=== PATIENT | female | born 1970 | race Caucasian/White ===

== ENCOUNTER 2019-10-18 04:30 | Observation (INO) | payer MEDICARE ==
[2019-10-18] MEDS ORDERED: AZITHROMYCIN INJ 500 MG VIAL IV ONE (04:50)
[2019-10-18] MEDS ORDERED: LEVOFLOXACIN 750 MG/D5W RTU 750 MG/150 ML RTUPB IV ONE (04:50)
[2019-10-18] MEDS ORDERED: RINGERS LACTATED IV ONE (04:50)
[2019-10-18] MEDS ORDERED: ONDANSETRON HCL INJ/PF 4 MG/2 ML SDV IV ONE (05:02)
[2019-10-18] MEDS ORDERED: METHYLPREDNISOLONE INJ 125 MG/2 ML SDV IV ONE (05:03)
[2019-10-18 05:19] LABS: ABSOLUTE BASOPHILS # (AUTO) 0.1 10^3/uL (0.0-0.2); ABSOLUTE EOSINOPHILS # (AUTO) 0.1 10^3/uL (0.0-0.6); ABSOLUTE LYMPHOCYTES (AUTO) 4.4 10^3/uL (0.5-4.7); ABSOLUTE MONOCYTES (AUTO) 0.7 10^3/uL (0.1-1.4); ABSOLUTE NEUT (AUTO) 10.7 10^3/uL (1.7-8.2); BASOPHILS % (AUTO) 0.6 % (0-2); EOSINOPHILS % (AUTO) 0.7 % (0-6); HEMATOCRIT 32.5 % (36.0-47.0); HEMOGLOBIN 10.6 g/dL (12.0-15.5); LYMPHOCYTES % (AUTO) 27.6 % (13-45); MEAN CORPUSCULAR HEMOGLOBIN 29.2 pg (27.0-33.4); MEAN CORPUSCULAR HGB CONC 32.7 g/dL (32.0-36.0); MEAN CORPUSCULAR VOLUME 89 fl (80-97); MONOCYTES % (AUTO) 4.7 % (3-13); PLATELET COUNT 542 10^3/uL (150-450); RED BLOOD COUNT 3.64 10^6/uL (3.72-5.28); RED CELL DISTRIBUTION WIDTH 16.9 % (11.5-14.0); SEGMENTED NEUTROPHILS % (AUTO) 66.4 % (42-78); TOTAL CELLS COUNTED % (AUTO) 100 %; WHITE BLOOD COUNT 16.1 10^3/uL (4.0-10.5)
[2019-10-18 05:28] LABS: INTERNATIONAL RATION (INR) 0.94; PROTHROMBIN TIME 12.6 SEC (11.4-15.4)
[2019-10-18 05:41] LABS: D-DIMER < 0.27 ug/mL (0.00-0.50)
[2019-10-18 05:50] LABS: ALBUMIN 3.7 g/dL (3.5-5.0); ALKALINE PHOSPHATASE 122 U/L (38-126); ANION GAP 12 (5-19); ASPARTATE AMINO TRANSFERASE 20 U/L (14-36); BILIRUBIN,DIRECT 0.4 mg/dL (0.0-0.4); BILIRUBIN,TOTAL 0.4 mg/dL (0.2-1.3); BLOOD UREA NITROGEN 30 mg/dL (7-20); CALCIUM 9.2 mg/dL (8.4-10.2); CARBON DIOXIDE 22 mmol/L (22-30); CHLORIDE 106 mmol/L (98-107); GLUCOSE 83 mg/dL (75-110); POTASSIUM 4.7 mmol/L (3.6-5.0); TOTAL PROTEIN 6.8 g/dL (6.3-8.2)
[2019-10-18 06:01] LABS: NT PRO BNP 1210 pg/mL (<125)
[2019-10-18 06:03] LABS: ARTERIAL BLOOD BASE EXCESS -4.7 mmol/L; ARTERIAL BLOOD HCO3 20.8 mmol/L (20-24); ARTERIAL BLOOD O2 SATURATION 94.1 % (94-98); ARTERIAL BLOOD PCO2 39.9 mmHg (35-45); ARTERIAL BLOOD PH 7.33 (7.35-7.45); ARTERIAL BLOOD PO2 74.2 mmHg (80-100)
[2019-10-18 06:06] LABS: TROPONIN I < 0.012 ng/mL
[2019-10-18 06:06] LABS: ARTERIAL BLOOD FIO2 ROOM AIR
--- NOTE | 2019-10-18 06:19 | ER Document Report ---
ED General - General Chief Complaint: Chest Pain > 30 Stated Complaint: CHEST PAIN Time Seen by Provider: 10/18/19 04:39 TRAVEL OUTSIDE OF THE [place] IN LAST 30 DAYS: No - HPI Notes: Carol Herrera is a 49-year-old female with a chief complaint of chest pain and difficulties breathing. Patient has smoked in excess of 1 pack/day all of her adult life. She has a history of COPD. She was seen by primary care provider elsewhere 3 days ago and started on prednisone and azithromycin. She is coughing up green sputum. She denies fever. She reports developing pain in her chest 3 days ago and says this is gotten progressively worse. It is described tonight as pressure radiating into the left shoulder. Partial relief with nitroglycerin spray administered by EMS. Patient denies any known prior history of coronary disease. Risk factors include cigarette smoking, hyperlipidemia and hypertension. No family history of CAD. Patient is not diabetic. HEART Score: HISTORY 1 ECG 1 AGE 1 RISK FACTORS 2 TROPONIN 0 TOTAL: 5 If HEART score is = 3 AND both tronponin measurments are normal, the 30 day risk of a major adverse cardiac event (all-cause mortality, myocardia infarction or need for coronary revscularization) is < 1% (Sensitivity 100%, NPV 100%). - Related Data Allergies/Adverse Reactions: Penicillins Allergy (Verified 10/18/19 04:39) Past Medical History - General Information source: Patient, Relative - Social History Smoking Status: Current Every Day Smoker Frequency of alcohol use: None Drug Abuse: None Lives with: Family Family History: Reviewed & Not Pertinent Patient has suicidal ideation: No Patient has homicidal ideation: No - Past Medical History Cardiac Medical History: Reports: None Pulmonary Medical History: Reports: Hx COPD EENT Medical History: Reports: None Neurological Medical History: Reports: Hx Migraine Endocrine Medical History: Reports: None Renal/ Medical History: Reports: None Malignancy Medical History: Reports: None GI Medical History: Reports: Hx Gastritis Musculoskeletal Medical History: Reports Hx Arthritis Psychiatric Medical History: Reports: Hx Depression Review of Systems - Review of Systems Notes: Constitutional: Negative for fever. HENT: Negative for sore throat. Eyes: Negative for visual changes. Cardiovascular: As per HPI. Respiratory: As per HPI. Gastrointestinal: Nausea without vomiting. Genitourinary: Negative for dysuria. Musculoskeletal: Negative for back pain. Skin: Negative for rash. Neurological: Dull headache present. 10 point ROS negative except as marked above and in HPI. Physical Exam - Vital signs Vitals: Pulse Ox 97 10/18/19 04:50 - Notes Notes: GENERAL: Female patient who appears considerably older than stated age.. Patient is tearful and anxious. SKIN: Good turgor no rashes. HEAD: Normocephalic atraumatic. EYES: PERRLA. EOMI. Conjunctivae and sclerae clear. EARS: CANALS AND TMS CLEAR. NOSE: CLEAR. MOUTH: Moist mucosa. Good dentition. No stridor or edema. No drooling. NECK: Supple. No masses or thyromegaly. No adenopathy. Carotids 2+ without bruits. No JVD. BACK: Symmetrical without tenderness. CHEST: Mild tenderness mid anterior chest area. Scattered rhonchi and end expiratory wheezes bilaterally. HEART: Regular rhythm. No murmur gallop or rub. ABDOMEN: Soft nontender without masses, organomegaly or rebound. Bowel sounds normally active. No bruits. GENITALIA: Deferred. EXTREMITIES: 1+ clubbing of nailbeds both upper extremities. No edema. No calf tenderness. Cap refill less than 1.5 seconds. Dorsalis pedis and posterior tibial pulses 3+ and symmetrical. NEUROLOGICAL: GCS 15. Alert and oriented x3. Fluent speech. Cranial nerves II through XII intact. Sensorimotor and cerebellar normal. Normal tone. PSYCHIATRIC: Anxious affect. Course - Re-evaluation Re-evalutation: 10/18/19 06:30 Initial troponin is negative. Patient was marginally hypotensive on arrival here and this rapidly improved with administration of IV normal saline. Lactate level is normal. White count is elevated. Chest x-ray shows no focal infiltrate. EKG showed nonspecific changes only. Patient was given a nebulizer treatment with DuoNeb and IV Solu-Medrol. I also gave her IV Levaquin and repeat blood cultures. Her lactate level was normal. I think it is most likely this lady's discomfort is related to COPD exacerbation with acute bronchitis. She has substantial coronary disease risk factors with a heart score of 5. We also got a d-dimer and this was normal. Recommend admission for this patient to a monitored bed and serial cardiac enzymes. I have paged Dr. Preciado for admission but he has not yet returned my page. - Vital Signs Vital signs: Temp Pulse Resp BP Pulse Ox 97.7 F 69 18 89/72 L 95 10/18/19 05:12 10/18/19 05:12 10/18/19 05:12 10/18/19 05:12 10/18/19 05:12 - Laboratory Result Diagrams: 10/18/19 04:40 10/18/19 04:40 Laboratory results interpreted by me: 10/18/19 10/18/19 10/18/19 04:40 04:40 04:40 WBC 16.1 H RBC 3.64 L Hgb 10.6 L Hct 32.5 L RDW 16.9 H Plt Count 542 H Absolute Neuts (auto) 10.7 H ABG pH ABG pO2 BUN 30 H Creatinine 1.96 H Est GFR ( Amer) 33 L Est GFR (MDRD) Non-Af 27 L Lactic Acid NT-Pro-B Natriuret Pep 1210 H 10/18/19 10/18/19 04:40 05:36 WBC RBC Hgb Hct RDW Plt Count Absolute Neuts (auto) ABG pH 7.33 L ABG pO2 74.2 L BUN Creatinine Est GFR ( Amer) Est GFR (MDRD) Non-Af Lactic Acid 0.5 L NT-Pro-B Natriuret Pep Discharge - Discharge Clinical Impression: Acute exacerbation of COPD with asthma, Acute bronchitis Chest pain Qualifiers: Chest pain type: unspecified Qualified Code(s): R07.9 - Chest pain, unspecified Condition: Fair Disposition: ADMITTED OBSERVATION Admitting Provider: Ozzy (Hospitalist)
--- NOTE | 2019-10-18 06:53 | RADIOLOGY REPORT (SQ) ---
EXAM: XR Chest, 1 View EXAM DATE/TIME: 10/18/2019 6:05 AM CLINICAL HISTORY: The patient is 49 years old and is Female; chest pain TECHNIQUE: Frontal view of the chest. COMPARISON: No relevant prior studies available. FINDINGS: LUNGS: Minimal left basilar density is suggestive of atelectasis. The lungs are otherwise clear. PLEURAL SPACE: Unremarkable. No pneumothorax. HEART: No significant enlargement of the cardiac silhouette. MEDIASTINUM: Unremarkable. BONES/JOINTS: No acute osseous findings. IMPRESSION: Minimal left basilar atelectasis.
[2019-10-18 07:20] LABS: APPEARANCE,URINE CLEAR; BILIRUBIN,URINE NEGATIVE (NEGATIVE); COLOR,URINE YELLOW; GLUCOSE, URINE NEGATIVE (NEGATIVE); KETONES,URINE NEGATIVE (NEGATIVE); PROTEIN,URINE NEGATIVE (NEGATIVE); URINE SPECIFIC GRAVITY 1.024; UROBILINOGEN,URINE NEGATIVE mg/dL (<2.0)
[2019-10-18 07:40] LABS: URINE AMPHETAMINES SCREEN NEGATIVE; URINE BARBITURATES SCREEN NEGATIVE; URINE BENZODIAZEPINES SCREEN NEGATIVE; URINE COCAINE SCREEN NEGATIVE; URINE MARIJUANA (THC) SCREEN NEGATIVE; URINE METHADONE SCREEN NEGATIVE; URINE PHENCYCLIDINE SCREEN NEGATIVE
[2019-10-18 07:52] LABS: A TYPE INFLUENZA AG NEGATIVE (NEGATIVE); B INFLUENZA AG NEGATIVE (NEGATIVE)
[2019-10-18] MEDS ORDERED: PROMETHAZINE HCL INJ 25 MG/1 ML VIAL IV PRN (08:42)
[2019-10-18] MEDS ORDERED: MAGNESIUM HYDROXIDE SUSP 30 ML UDCUP PO PRN (08:42)
[2019-10-18] MEDS ORDERED: TEMAZEPAM 15 MG CAPSULE PO PRN (08:42)
[2019-10-18] MEDS ORDERED: ONDANSETRON HCL INJ/PF 4 MG/2 ML SDV IV PRN (08:42)
[2019-10-18] MEDS ORDERED: MORPHINE SULFATE 10 MG/ML INJ IV PRN (08:55)
[2019-10-18] MEDS ORDERED: NITROGLYCERIN 0.4 MG/TAB 25 TAB/BOTTLE SL PRN (08:55)
[2019-10-18] MEDS: OXYCODONE-ACETAMINOPHEN 5-325 MG TABLET PO PRN ×3 (09:51→22:28)
[2019-10-18] MEDS: DOCUSATE SODIUM 100 MG CAPSULE PO SCH ×2 (09:51→17:06)
[2019-10-18] MEDS: AZITHROMYCIN 250 MG TABLET PO SCH (09:51)
--- NOTE | 2019-10-18 10:12 | EKG REPORT ---
SEVERITY:- ABNORMAL ECG - SINUS RHYTHM FIRST DEGREE AV BLOCK NONSPECIFIC T ABNORMALITIES, LATERAL LEADS : Confirmed by: Soha Flores MD 18-Oct-2019 10:12:23
[2019-10-18] MEDS ORDERED: (PENDING PHARMACY ID) (Clonazepam [Klonopin] 0.5 MG) PO PRN (10:44)
[2019-10-18] MEDS ORDERED: QUETIAPINE FUMARATE 100 MG TABLET PO PRN ×2 (10:44)
[2019-10-18] MEDS ORDERED: SUMATRIPTAN SUCCINATE 25 MG TABLET PO PRN (10:44)
[2019-10-18] MEDS ORDERED: (PENDING PHARMACY ID) (Lamotrigine [Lamictal] 25 MG) PO SCH (11:00)
[2019-10-18] MEDS ORDERED: FUROSEMIDE 20 MG TABLET PO SCH (11:00)
--- NOTE | 2019-10-18 11:06 | PDOC H&P ---
History of Present Illness Admission Date/PCP: 10/18/19 06:43 History of Present Illness: GIN HADDAD is a 49 year old female with past medical history of tension, tobacco abuse, non-oxygen dependent COPD, migraine headaches, depression, bipolar, asthma, presenting to ED complaining of worsening shortness of breath associated with productive cough and pleuritic chest pain for the last 3 days. Was seen by PCP started on prednisone and azithromycin with no significant improvement, denies any fever, chills any recent travel, sick contacts, nausea, vomiting, diarrhea, constipation or any urinary symptoms. Past Medical History Cardiac Medical History: Reports: None Pulmonary Medical History: Reports: Chronic Obstructive Pulmonary Disease (COPD) EENT Medical History: Reports: None Neurological Medical History: Reports: Migraine Endocrine Medical History: Reports: None Renal/ Medical History: Reports: None Malignancy Medical History: Reports: None Musculoskeltal Medical History: Reports: Arthritis Psychiatric Medical History: Reports: Depression Social History Lives with: Family Smoking Status: Current Every Day Smoker Cigarettes Packs Per Day: -0.5 Number of Years Smokin Frequency of Alcohol Use: None Hx Recreational Drug Use: No Drugs: None Hx Prescription Drug Abuse: No Family History Family History: Reviewed & Not Pertinent Parental Family History Reviewed: Yes Children Family History Reviewed: Yes Sibling(s) Family History Reviewed.: Yes Medication/Allergy Home Medications: Albuterol Sulfate [Proair Hfa Inhalation Aerosol 8.5 gm Mdi] 2 puff IH ASDIR PRN 10/18/19 Albuterol Sulfate [Ventolin 0.083% Neb 2.5 mg/3 ml Ampul] 1 vial NEB RTQ4HP PRN 10/18/19 Amlodipine Besylate [Norvasc 5 mg Tablet] 2.5 mg PO DAILY 10/18/19 Atorvastatin Calcium [Lipitor 20 mg Tablet] 20 mg PO DAILY 10/18/19 Budesonide/Formoterol Fumarate [Symbicort Hfa 160-4.5 Mcg Inhaler 6 gm] 2 puff IH Q12 10/18/19 Clonazepam [Klonopin] 0.5 mg PO Q8HP PRN 10/18/19 Fluoxetine HCl [Prozac] 80 mg PO QAM 10/18/19 Fluticasone Propionate [Flonase Nasal [place] 50 Mcg/[place] 16 gm] 2 sprays NASL Q12 10/18/19 Furosemide [Lasix 20 mg Tablet] 20 mg PO DAILY 10/18/19 Gabapentin [Neurontin] 1,200 mg PO Q8 10/18/19 Hydroxyzine HCl [Atarax 50 mg Tablet] 50 mg PO QIDP PRN 10/18/19 Lamotrigine [Lamictal] 25 mg PO DAILY 10/18/19 Lurasidone HCl [Latuda 40 mg Tablet] 40 mg PO QPM 10/18/19 Methylprednisolone [Medrol Dosepack (4 mg/Tab) 21 Tab/Dosepak] 4 mg PO ASDIR PRN 10/18/19 Montelukast Sodium [Singulair 10 mg Tablet] 10 mg PO DAILY 10/18/19 Omeprazole 40 mg PO DAILY 10/18/19 Propranolol HCl [Inderal 10 mg Tablet] 10 mg PO Q8 10/18/19 Quetiapine Fumarate [Seroquel 100 mg Tablet] 50 mg PO DAILYP PRN 10/18/19 Quetiapine Fumarate [Seroquel 100 mg Tablet] 100 mg PO HSP PRN 10/18/19 Sumatriptan Succinate [Imitrex 25 mg Tablet] 25 mg PO DAILYP PRN 10/18/19 Topiramate [Topamax] 50 mg PO Q12 10/18/19 Umeclidinium [place] [Incruse Ellipta] 1 puff IH DAILY 10/18/19 Allergies/Adverse Reactions: Penicillins Allergy (Verified 10/18/19 04:39) Review of Systems Review of Systems: as per hpi Physical Exam Vital Signs: Temp Pulse Resp BP Pulse Ox 97.5 F 74 18 62/40 L 97 10/18/19 08:22 10/18/19 08:31 10/18/19 08:22 10/18/19 08:22 10/18/19 08:22 Intake & Output 10/17/19 10/18/19 10/19/19 06:59 06:59 06:59 Intake Total 150 2340 Balance 150 2340 Weight 77.4 kg 80.5 kg General appearance: PRESENT: obese Head exam: PRESENT: atraumatic, normocephalic Respiratory exam: PRESENT: decreased breath sounds, prolonged expiratory phas, wheezes. ABSENT: rales, rhonchi Cardiovascular exam: PRESENT: RRR, other - TTP chest. ABSENT: diastolic murmur, rubs, systolic murmur GI/Abdominal exam: PRESENT: normal bowel sounds, soft. ABSENT: distended, guarding, mass, organolmegaly, rebound, tenderness Neurological exam: PRESENT: alert, awake, oriented to person, oriented to place, oriented to time, oriented to situation, CN II-XII grossly intact. ABSENT: motor sensory deficit Results Laboratory Results: 10/18/19 04:40 10/18/19 04:40 10/18/19 10/18/19 10/18/19 04:40 04:40 04:40 WBC 16.1 H RBC 3.64 L Hgb 10.6 L Hct 32.5 L MCV 89 MCH 29.2 MCHC 32.7 RDW 16.9 H Plt Count 542 H Seg Neutrophils % 66.4 Carbonic Acid HCO3/H2CO3 Ratio ABG pH ABG pCO2 ABG pO2 ABG HCO3 ABG O2 Saturation ABG Base Excess FiO2 Sodium 139.8 Potassium 4.7 Chloride 106 Carbon Dioxide 22 Anion Gap 12 BUN 30 H Creatinine 1.96 H Est GFR ( Amer) 33 L Glucose 83 Lactic Acid 0.5 L Calcium 9.2 Total Bilirubin 0.4 AST 20 Alkaline Phosphatase 122 Total Protein 6.8 Albumin 3.7 Urine Color Urine Appearance Urine pH Ur Specific [place] Urine Protein Urine Glucose (UA) Urine Ketones Urine Blood Urine RBC (Auto) 10/18/19 10/18/19 10/18/19 05:36 06:55 07:52 WBC RBC Hgb Hct MCV MCH MCHC RDW Plt Count Seg Neutrophils % Carbonic Acid 1.20 HCO3/H2CO3 Ratio 17:1 ABG pH 7.33 L ABG pCO2 39.9 ABG pO2 74.2 L ABG HCO3 20.8 ABG O2 Saturation 94.1 ABG Base Excess -4.7 FiO2 ROOM AIR Sodium Potassium Chloride Carbon Dioxide Anion Gap BUN Creatinine Est GFR ( Amer) Glucose Lactic Acid 1.3 Calcium Total Bilirubin AST Alkaline Phosphatase Total Protein Albumin Urine Color YELLOW Urine Appearance CLEAR Urine pH 5.0 Ur Specific [place] 1.024 Urine Protein NEGATIVE Urine Glucose (UA) NEGATIVE Urine Ketones NEGATIVE Urine Blood NEGATIVE Urine RBC (Auto) 0 10/18/19 04:40 Troponin I < 0.012 NT-Pro-B Natriuret Pep 1210 H Impressions: Chest X-Ray 10/18/19 04:51 IMPRESSION: Minimal left basilar atelectasis. Assessment and Plan - Diagnosis (1) Acute respiratory failure with hypoxemia Is this a current diagnosis for this admission?: Yes Plan: Most likely to acute COPD/asthma exacerbation. Admit to telemetry, IV steroids, empiric antibiotics, duo nebs, VILLAGRAN, LABA, ICS, incentive spirometry. (2) Acute exacerbation of COPD with asthma Is this a current diagnosis for this admission?: Yes Plan: History of COPD/asthma non-oxygen dependent. As per problem #1. (3) KYLE (acute kidney injury) Is this a current diagnosis for this admission?: Yes Plan: Likely prerenal. Denies any history of CKD. Cautious volume resuscitation guided by volume status, monitor electrolytes replace as needed. Avoid nephrotoxic meds. BMP tomorrow. If no improvement will consult nephrology. (4) Hyperlipidemia Is this a current diagnosis for this admission?: Yes Plan: Diet and lifestyle modification recommended. Restart home meds. Outpatient PCP follow-up. (5) HTN (hypertension) Is this a current diagnosis for this admission?: Yes Plan: Normotensive. Euvolemic. Restart home meds. Adjust meds as needed. PRN IV hydralazine and metoprolol. (6) Bipolar depression Is this a current diagnosis for this admission?: Yes Plan: Denies any suicidal or homicidal ideation. Restart home meds. Outpatient psychiatry and PCP follow-up. (7) Tobacco abuse Is this a current diagnosis for this admission?: Yes Plan: Extensively advised on quitting. NicoDerm patch provided. (8) Obesity (BMI 30.0-34.9) Is this a current diagnosis for this admission?: Yes Plan: BMI 32.5. Will obtain TSH. Diet and lifestyle modification recommended. (9) Hx of migraine headaches Is this a current diagnosis for this admission?: Yes Plan: Restart home meds. Denies any focal neurological symptoms. (10) Chest pain Qualifiers: Chest pain type: unspecified Qualified Code(s): R07.9 - Chest pain, unsp ecified Is this a current diagnosis for this admission?: Yes Plan: Denies any history of CAD. Troponins negative. EKG no acute changes. Presenting with mildly elevated proBNP. We will obtained echo. This is unlikely cardiac in origin, most likely musculoskeletal. Patient has diffuse tenderness to palpation over anterior chest. Continue supportive measures. (11) Hypotension Is this a current diagnosis for this admission?: Yes Plan: Very unlikely that patient has SIRS/Sepsis. Lactic acid WNL, SPO2 WNL on RA, heart rate WNL, RR WNL. Mild neutrophilic leukocytosis which could be due to outpatient p.o. steroids for acute COPD exacerbation. Most likely mechanical air. Patient has had 2 episodes of low blood pressure recorded EMR however patient is alert oriented x3 in no apparent distress. Admit to telemetry. Monitor vital status.
[2019-10-18] MEDS ORDERED: HYDROXYZINE HCL 10 MG TABLET PO PRN (11:49)
[2019-10-18] MEDS: FLUOXETINE HCL 20 MG CAPSULE PO SCH (12:44)
[2019-10-18] MEDS: MONTELUKAST SODIUM 10 MG TABLET PO SCH (12:44)
[2019-10-18] MEDS: ATORVASTATIN CALCIUM 20 MG TABLET PO SCH (12:45)
[2019-10-18] MEDS: CLONAZEPAM 1 MG TABLET PO PRN ×2 (12:45→22:29)
[2019-10-18] MEDS: IPRATROPIUM/ALBUTEROL 0.5-2.5 MG/3 ML AMPUL NEB SCH ×2 (14:02→20:36)
[2019-10-18] MEDS: HEPARIN SOD (PORCINE) 5,000 UNIT/ML 1 ML VIAL SUBCUT SCH ×2 (14:38→22:22)
[2019-10-18] MEDS: GABAPENTIN 400 MG CAPSULE PO SCH ×2 (14:42→22:20)
[2019-10-18] MEDS: PROPRANOLOL HCL 10 MG TABLET PO SCH ×2 (14:42→22:21)
[2019-10-18] MEDS: TOPIRAMATE 25 MG TABLET PO SCH ×2 (14:42→22:22)
[2019-10-18] MEDS: METHYLPREDNISOLONE INJ 40 MG/1 ML SDV IV SCH ×2 (14:42→22:22)
[2019-10-18] MEDS: FLUTICASONE/VILANTEROL 200-25 MCG/DOSE IH SCH (14:43)
[2019-10-18] MEDS: ACETAMINOPHEN 325 MG TABLET PO PRN (17:06)
[2019-10-18] MEDS: LURASIDONE HCL 40 MG TABLET PO SCH (17:06)
[2019-10-18] MEDS: FLUTICASONE NASAL SPRAY 50 MCG/SPRY 120 SPRAY/16 GM NASL SCH (22:21)
[2019-10-19] MEDS: OXYCODONE-ACETAMINOPHEN 5-325 MG TABLET PO PRN ×4 (03:03→19:37)
[2019-10-19] MEDS: PROPRANOLOL HCL 10 MG TABLET PO SCH ×3 (05:34→21:18)
[2019-10-19] MEDS: HEPARIN SOD (PORCINE) 5,000 UNIT/ML 1 ML VIAL SUBCUT SCH ×3 (05:34→21:21)
[2019-10-19] MEDS: METHYLPREDNISOLONE INJ 40 MG/1 ML SDV IV SCH ×3 (05:37→21:18)
[2019-10-19] MEDS: GABAPENTIN 400 MG CAPSULE PO SCH ×3 (05:37→21:18)
[2019-10-19] MEDS: CLONAZEPAM 1 MG TABLET PO PRN ×3 (05:38→19:37)
[2019-10-19 06:13] LABS: ALBUMIN 3.4 g/dL (3.5-5.0); ALKALINE PHOSPHATASE 109 U/L (38-126); ANION GAP 6 (5-19); ASPARTATE AMINO TRANSFERASE 33 U/L (14-36); BILIRUBIN,DIRECT 0.1 mg/dL (0.0-0.4); BILIRUBIN,TOTAL 0.1 mg/dL (0.2-1.3); BLOOD UREA NITROGEN 22 mg/dL (7-20); CALCIUM 9.6 mg/dL (8.4-10.2); CARBON DIOXIDE 26 mmol/L (22-30); CHLORIDE 106 mmol/L (98-107); GLUCOSE 143 mg/dL (75-110); PHOSPHORUS 3.7 mg/dL (2.5-4.5); POTASSIUM 4.5 mmol/L (3.6-5.0); TOTAL PROTEIN 6.4 g/dL (6.3-8.2)
[2019-10-19 08:28] LABS: ABSOLUTE LYMPHOCYTES (AUTO) 1.4 10^3/uL (0.5-4.7); ABSOLUTE MONOCYTES (AUTO) 0.3 10^3/uL (0.1-1.4); ABSOLUTE NEUT (AUTO) 15.1 10^3/uL (1.7-8.2); BASOPHILS % (AUTO) 0.1 % (0-2); HEMATOCRIT 31.7 % (36.0-47.0); HEMOGLOBIN 10.6 g/dL (12.0-15.5); LYMPHOCYTES % (AUTO) 8.4 % (13-45); MEAN CORPUSCULAR HEMOGLOBIN 29.5 pg (27.0-33.4); MEAN CORPUSCULAR HGB CONC 33.5 g/dL (32.0-36.0); MEAN CORPUSCULAR VOLUME 88 fl (80-97); MONOCYTES % (AUTO) 1.7 % (3-13); PLATELET COUNT 481 10^3/uL (150-450); RED CELL DISTRIBUTION WIDTH 16.8 % (11.5-14.0); SEGMENTED NEUTROPHILS % (AUTO) 89.8 % (42-78); TOTAL CELLS COUNTED % (AUTO) 100 %; WHITE BLOOD COUNT 16.9 10^3/uL (4.0-10.5)
[2019-10-19 08:40] LABS: ANION GAP 10 (5-19); BLOOD UREA NITROGEN 22 mg/dL (7-20); CALCIUM 9.5 mg/dL (8.4-10.2); CARBON DIOXIDE 22 mmol/L (22-30); CHLORIDE 105 mmol/L (98-107); GLUCOSE 137 mg/dL (75-110); POTASSIUM 4.8 mmol/L (3.6-5.0)
[2019-10-19] MEDS: IPRATROPIUM/ALBUTEROL 0.5-2.5 MG/3 ML AMPUL NEB SCH ×3 (08:56→20:25)
[2019-10-19] MEDS: LAMOTRIGINE 25 MG TAB.CHEW PO SCH (09:24)
[2019-10-19] MEDS: ACETAMINOPHEN 325 MG TABLET PO PRN (09:24)
[2019-10-19] MEDS: DOCUSATE SODIUM 100 MG CAPSULE PO SCH ×2 (09:24→17:13)
[2019-10-19] MEDS: FLUOXETINE HCL 20 MG CAPSULE PO SCH (09:24)
[2019-10-19] MEDS: MONTELUKAST SODIUM 10 MG TABLET PO SCH (09:24)
[2019-10-19] MEDS: ATORVASTATIN CALCIUM 20 MG TABLET PO SCH (09:24)
[2019-10-19] MEDS: AZITHROMYCIN 250 MG TABLET PO SCH (09:24)
[2019-10-19] MEDS: AMLODIPINE BESYLATE 2.5 MG TABLET PO SCH (09:25)
[2019-10-19] MEDS: FLUTICASONE NASAL SPRAY 50 MCG/SPRY 120 SPRAY/16 GM NASL SCH ×2 (09:25→21:20)
[2019-10-19] MEDS: FLUTICASONE/VILANTEROL 200-25 MCG/DOSE IH SCH (09:25)
[2019-10-19] MEDS: TOPIRAMATE 25 MG TABLET PO SCH ×2 (09:26→21:23)
[2019-10-19] MEDS ORDERED: AMLODIPINE BESYLATE 5 MG TABLET PO SCH (10:00)
[2019-10-19] MEDS ORDERED: VANCOMYCIN HCL 0 MG in DEXTROSE 5%-WATER 250 ML IV NR ×2 (10:15→10:45)
--- NOTE | 2019-10-19 10:43 | PDOC PROGRESS REPORT ---
Subjective Progress Note for:: 10/19/19 Subjective:: GIN HADDAD is a 49 year old female with past medical history of tension, tobacco abuse, non-oxygen dependent COPD, migraine headaches, depression, bipolar, asthma, presenting to ED complaining of worsening shortness of breath associated with productive cough and pleuritic chest pain for the last 3 days. Was seen by PCP started on prednisone and azithromycin with no significant improvement, denies any fever, chills any recent travel, sick contacts, nausea, vomiting, diarrhea, constipation or any urinary symptoms. 10/19/2019. No acute events overnight, patient is still complaining of shortness of breath and productive cough, chest pain has improved moderately since yesterday, denies any fever, chills, nausea, vomiting, diarrhea, constipation or any urinary symptoms. P.o. tolerant, having normal bowel and bladder movements. Patient could potentially be discharged home however growing gram-positive cocci in blood. Reason For Visit: ACUTE COPD EXCERBATION, CHEST PAIN Physical Exam Vital Signs: Temp Pulse Resp BP Pulse Ox 98.3 F 64 16 111/63 96 10/19/19 08:17 10/19/19 08:56 10/19/19 08:56 10/19/19 08:17 10/19/19 08:56 Intake & Output 10/18/19 10/19/19 10/20/19 06:59 06:59 06:59 Intake Total 150 3370 Output Total 1 Balance 150 3369 Weight 77.4 kg 84.2 kg General appearance: PRESENT: no acute distress, well-developed, well-nourished Head exam: PRESENT: atraumatic, normocephalic Respiratory exam: PRESENT: decreased breath sounds, prolonged expiratory phas. ABSENT: rales, rhonchi, wheezes Cardiovascular exam: PRESENT: RRR, other - Anterior chest wall tenderness to palpation.. ABSENT: diastolic murmur, rubs, systolic murmur GI/Abdominal exam: PRESENT: normal bowel sounds, soft. ABSENT: distended, guarding, mass, organolmegaly, rebound, tenderness Neurological exam: PRESENT: alert, awake, oriented to person, oriented to place, oriented to time, oriented to situation, CN II-XII grossly intact. ABSENT: motor sensory deficit Results Laboratory Results: 10/19/19 08:02 10/19/19 08:02 10/18/19 10/19/19 10/19/19 11:21 04:54 08:02 WBC 16.9 H RBC 3.60 L Hgb 10.6 L Hct 31.7 L MCV 88 MCH 29.5 MCHC 33.5 RDW 16.8 H Plt Count 481 H Seg Neutrophils % 89.8 H Sodium 138.0 Potassium 4.5 Chloride 106 Carbon Dioxide 26 Anion Gap 6 BUN 22 H Creatinine 1.20 Est GFR ( Amer) 58 L Glucose 143 H Lactic Acid 1.6 Calcium 9.6 Phosphorus 3.7 Total Bilirubin 0.1 L AST 33 Alkaline Phosphatase 109 Total Protein 6.4 Albumin 3.4 L 10/19/19 08:02 WBC RBC Hgb Hct MCV MCH MCHC RDW Plt Count Seg Neutrophils % Sodium 137.4 Potassium 4.8 Chloride 105 Carbon Dioxide 22 Anion Gap 10 BUN 22 H Creatinine 1.16 Est GFR ( Amer) > 60 Glucose 137 H Lactic Acid Calcium 9.5 Phosphorus Total Bilirubin AST Alkaline Phosphatase Total Protein Albumin 10/18/19 04:40 Troponin I < 0.012 NT-Pro-B Natriuret Pep 1210 H Impressions: Chest X-Ray 10/18/19 04:51 IMPRESSION: Minimal left basilar atelectasis. Assessment and Plan - Diagnosis (1) Gram-positive bacteremia Is this a current diagnosis for this admission?: Yes Plan: Cultures from 10/18/2019 1 out of 2 growing gram-positive cocci in clusters pending sensitivity likely contamination. We will start on vancomycin, repeat blood culture. (2) Acute respiratory failure with hypoxemia Is this a current diagnosis for this admission?: Yes Plan: Moderate improvement. SPO2 WNL on RA. Most likely to acute COPD/asthma exacerbation. Continue telemetry, IV steroids, empiric antibiotics, duo nebs, VILLAGRAN, LABA, ICS, incentive spirometry. (3) Acute exacerbation of COPD with asthma Is this a current diagnosis for this admission?: Yes Plan: History of COPD/asthma non-oxygen dependent. As per problem #1. (4) KYLE (acute kidney injury) Is this a current diagnosis for this admission?: Yes Plan: Resolved. Euvolemic. Electrolytes WNL. Likely prerenal. Denies any history of CKD. Monitor electrolytes and volume status, replace electrolytes as needed. Avoid nephrotoxic meds. BMP tomorrow. (5) Hyperlipidemia Is this a current diagnosis for this admission?: Yes Plan: Diet and lifestyle modification recommended. Restart home meds. Outpatient PCP follow-up. (6) HTN (hypertension) Is this a current diagnosis for this admission?: Yes Plan: Normotensive. Euvolemic. Restart home meds. Adjust meds as needed. PRN IV hydralazine and metoprolol. (7) Bipolar depression Is this a current diagnosis for this admission?: Yes Plan: Denies any suicidal or homicidal ideation. Restart home meds. Outpatient psychiatry and PCP follow-up. (8) Tobacco abuse Is this a current diagnosis for this admission?: Yes Plan: Extensively advised on quitting. NicoDerm patch provided. (9) Obesity (BMI 30.0-34.9) Is this a current diagnosis for this admission?: Yes Plan: BMI 32.5. Will obtain TSH. Diet and lifestyle modification recommended. (10) Hx of migraine headaches Is this a current diagnosis for this admission?: Yes Plan: Restart home meds. Denies any focal neurological symptoms. (11) Chest pain Qualifiers: Chest pain type: unspecified Qualified Code(s): R07.9 - Chest pain, unspecified Is this a current diagnosis for this admission?: Yes Plan: Moderate improvement. Denies any history of CAD. Troponins negative. EKG no acute changes. Presented with mildly elevated proBNP. Pending 2D echo results. This is unlikely cardiac in origin, most likely musculoskeletal. Patient has diffuse tenderness to palpation over anterior chest. Continue supportive measures. (12) Hypotension Is this a current diagnosis for this admission?: Yes Plan: Resolved. Euvolemic and normotensive. Very unlikely that patient has SIRS/Sepsis. Lactic acid WNL, SPO2 WNL on RA, heart rate WNL, RR WNL. Mild neutrophilic leukocytosis which could be due to outpatient p.o. steroids for acute COPD exacerbation. Most likely mechanical air. Patient has had 2 episodes of low blood pressure recorded EMR however patient is alert oriented x3 in no apparent distress. Admit to telemetry. Monitor vital status.
[2019-10-19] MEDS: VANCOMYCIN HCL 1,250 MG in DEXTROSE 5%-WATER 250 ML IV SCH (12:21)
[2019-10-19] MEDS: NICOTINE 14 MG/24 HR PATCH.TD24 TD SCH (16:07)
[2019-10-19] MEDS: LURASIDONE HCL 40 MG TABLET PO SCH (17:13)
--- NOTE | 2019-10-19 20:50 | XCELERA REPORT ---
[address] [address] Transthoracic Echocardiogram Report Name: GIN HADDAD Age: 49 yrs Gender: Female : 1970 Patient Status: Inpatient Patient Location: [address] [place], [place] [id number] Study Date: 10/18/2019 03:28 PM History: CHF Height: 62 in Weight: 177 lb BSA: 1.8 m2 Procedure: A complete two-dimensional transthoracic echocardiogram was performed (2D, M-mode, spectral and color flow Doppler). The study was technically difficult with many images being suboptimal in quality. Reason For Study: acute chf Previous Evaluation: No previous studies were available. History: CHF. Ordering Physician: LAKHWINDER WOO Performed By: Erica Landeros Interpretation Summary The study was technically difficult with many images being suboptimal in quality. Left ventricular systolic function is normal. The Ejection Fraction estimate is 55-60% The right ventricle is normal in size and function. There is a trace amount of mitral regurgitation There is no aortic valve stenosis There is a trace amount of tricuspid regurgitation There is no pericardial effusion. MMode/2D Measurements & Calculations RVDd: 1.9 cm LVIDd: 5.5 cm FS: 28.0 % Ao root diam: 2.8 cm IVSd: 0.94 cm LVIDs: 4.0 cm EDV(Teich): 147.3 ml Ao root area: 6.2 cm2 LVPWd: 1.1 cm ESV(Teich): 68.3 ml LA dimension: 3.0 cm EF(Teich): 53.7 % Doppler Measurements & Calculations MV E max kartik: MV P1/2t max kartik: Ao V2 max: LV V1 max P.1 cm/sec 126.7 cm/sec 148.4 cm/sec 5.3 mmHg MV A max kartik: MV P1/2t: 45.0 msec Ao max P.8 mmHgLV V1 max: 88.8 cm/sec MVA(P1/2t): 4.9 cm2 114.6 cm/sec MV E/A: 1.0 MV dec slope: 824.0 cm/sec2 MV dec time: 0.19 sec PA V2 max: TR max kartik: MV P1/2t-pr_phl: 116.3 cm/sec 228.0 cm/sec 45.0 msec PA max PG: TR max P.8 mmHg 5.4 mmHg Left Ventricle The left ventricle is grossly normal size. There is mild concentric left ventricular hypertrophy. Left ventricular systolic function is normal. The Ejection Fraction estimate is 55-60%. Doppler measurements suggest pseudonormalized left ventricular relaxation, which is associated with grade II/IV or mild to moderate diastolic dysfunction. No regional wall motion abnormalities noted. Right Ventricle The right ventricle is normal in size and function. Atria The right atrium is normal. The left atrial size is normal. Mitral Valve The mitral valve is grossly normal. There is a trace amount of mitral regurgitation. Aortic Valve The aortic valve is normal in structure and function. The aortic valve is trileaflet. The aortic valve opens well. There is no aortic valve stenosis. No aortic regurgitation is present. Tricuspid Valve The tricuspid valve is normal in structure and function. There is a trace amount of tricuspid regurgitation. Pulmonic Valve The pulmonic valve is not well visualized. Great Vessels The inferior vena cava appeared dilated and decreased < 50% with respiration (RAP 15-20 mmHg). Effusions There is no pericardial effusion. : LAKHWINDER WOO Anil
[2019-10-20] MEDS: OXYCODONE-ACETAMINOPHEN 5-325 MG TABLET PO PRN ×4 (01:10→22:08)
[2019-10-20 05:21] LABS: ABSOLUTE LYMPHOCYTES (AUTO) 1.7 10^3/uL (0.5-4.7); ABSOLUTE MONOCYTES (AUTO) 0.4 10^3/uL (0.1-1.4); ABSOLUTE NEUT (AUTO) 15.8 10^3/uL (1.7-8.2); HEMATOCRIT 30.9 % (36.0-47.0); HEMOGLOBIN 10.2 g/dL (12.0-15.5); LYMPHOCYTES % (AUTO) 9.5 % (13-45); MEAN CORPUSCULAR HEMOGLOBIN 29.1 pg (27.0-33.4); MEAN CORPUSCULAR HGB CONC 32.8 g/dL (32.0-36.0); MEAN CORPUSCULAR VOLUME 89 fl (80-97); MONOCYTES % (AUTO) 2.3 % (3-13); PLATELET COUNT 450 10^3/uL (150-450); RED BLOOD COUNT 3.49 10^6/uL (3.72-5.28); RED CELL DISTRIBUTION WIDTH 16.9 % (11.5-14.0); SEGMENTED NEUTROPHILS % (AUTO) 88.2 % (42-78); TOTAL CELLS COUNTED % (AUTO) 100 %; WHITE BLOOD COUNT 17.9 10^3/uL (4.0-10.5)
[2019-10-20] MEDS ORDERED: PROPRANOLOL HCL 10 MG TABLET ONE (06:31)
[2019-10-20] MEDS: CLONAZEPAM 1 MG TABLET PO PRN (06:42)
[2019-10-20] MEDS: HEPARIN SOD (PORCINE) 5,000 UNIT/ML 1 ML VIAL SUBCUT SCH ×3 (06:42→22:07)
[2019-10-20] MEDS: GABAPENTIN 400 MG CAPSULE PO SCH ×3 (06:42→22:08)
[2019-10-20] MEDS: METHYLPREDNISOLONE INJ 40 MG/1 ML SDV IV SCH ×3 (06:42→22:05)
[2019-10-20] MEDS: PROPRANOLOL HCL 10 MG TABLET PO SCH ×3 (06:54→22:13)
[2019-10-20] MEDS: IPRATROPIUM/ALBUTEROL 0.5-2.5 MG/3 ML AMPUL NEB SCH ×3 (08:06→20:56)
[2019-10-20] MEDS: TOPIRAMATE 25 MG TABLET PO SCH ×2 (09:16→22:06)
[2019-10-20] MEDS: DOCUSATE SODIUM 100 MG CAPSULE PO SCH ×2 (09:17→17:01)
[2019-10-20] MEDS: ATORVASTATIN CALCIUM 20 MG TABLET PO SCH (09:17)
[2019-10-20] MEDS: AZITHROMYCIN 250 MG TABLET PO SCH (09:18)
[2019-10-20] MEDS: MONTELUKAST SODIUM 10 MG TABLET PO SCH (09:18)
[2019-10-20] MEDS: FLUTICASONE/VILANTEROL 200-25 MCG/DOSE IH SCH (09:18)
[2019-10-20] MEDS: FLUTICASONE NASAL SPRAY 50 MCG/SPRY 120 SPRAY/16 GM NASL SCH ×2 (09:18→22:34)
[2019-10-20] MEDS: FLUOXETINE HCL 20 MG CAPSULE PO SCH (09:20)
[2019-10-20] MEDS: NICOTINE 14 MG/24 HR PATCH.TD24 TD SCH (09:20)
[2019-10-20] MEDS: LAMOTRIGINE 25 MG TAB.CHEW PO SCH (11:29)
[2019-10-20] MEDS: AMLODIPINE BESYLATE 2.5 MG TABLET PO SCH (11:29)
[2019-10-20] MEDS: VANCOMYCIN HCL 1,250 MG in DEXTROSE 5%-WATER 250 ML IV SCH (11:29)
[2019-10-20] MEDS ORDERED: PROCHLORPERAZINE MALEATE 10 MG TABLET PO ONE (15:25)
[2019-10-20] MEDS ORDERED: QUETIAPINE FUMARATE 100 MG TABLET PO PRN (15:26)
[2019-10-20] MEDS ORDERED: QUETIAPINE FUMARATE 25 MG TABLET PO ONE (15:55)
--- NOTE | 2019-10-20 16:42 | PDOC PROGRESS REPORT ---
Subjective Progress Note for:: 10/20/19 Subjective:: GIN HADDAD is a 49 year old female with past medical history of tension, tobacco abuse, non-oxygen dependent COPD, migraine headaches, depression, bipolar, asthma, presenting to ED complaining of worsening shortness of breath associated with productive cough and pleuritic chest pain for the last 3 days. Was seen by PCP started on prednisone and azithromycin with no significant improvement, denies any fever, chills any recent travel, sick contacts, nausea, vomiting, diarrhea, constipation or any urinary symptoms. 10/19/2019. No acute events overnight, patient is still complaining of shortness of breath and productive cough, chest pain has improved moderately since yesterday, denies any fever, chills, nausea, vomiting, diarrhea, constipation or any urinary symptoms. P.o. tolerant, having normal bowel and bladder movements. Patient could potentially be discharged home however growing gram-positive cocci in blood. 10/20/2019. No acute events overnight. Still complaining of mild pleuritic chest pain, shortness of breath, headache and not being able to sleep, denies any fever, chills, nausea, vomiting, diarrhea, constipation or any urinary symptoms. Reason For Visit: ACUTE COPD EXCERBATION, CHEST PAIN Physical Exam Vital Signs: Temp Pulse Resp BP Pulse Ox 97.5 F 84 16 138/64 H 92 10/20/19 13:21 10/20/19 14:00 10/20/19 13:54 10/20/19 13:21 10/20/19 13:54 Intake & Output 10/19/19 10/20/19 10/21/19 06:59 06:59 06:59 Intake Total 3370 1058 250 Output Total 1 Balance 3369 1058 250 Weight 84.2 kg 84.2 kg General appearance: PRESENT: no acute distress, well-developed, well-nourished Head exam: PRESENT: atraumatic, normocephalic Respiratory exam: PRESENT: prolonged expiratory phas, wheezes. ABSENT: rales, rhonchi Cardiovascular exam: PRESENT: RRR. ABSENT: diastolic murmur, rubs, systolic murmur GI/Abdominal exam: PRESENT: normal bowel sounds, soft. ABSENT: distended, guarding, mass, organolmegaly, rebound, tenderness Neurological exam: PRESENT: alert, awake, oriented to person, oriented to place, oriented to time, oriented to situation, CN II-XII grossly intact. ABSENT: motor sensory deficit Results Laboratory Results: 10/20/19 04:58 10/19/19 08:02 10/20/19 04:58 WBC 17.9 H RBC 3.49 L Hgb 10.2 L Hct 30.9 L MCV 89 MCH 29.1 MCHC 32.8 RDW 16.9 H Plt Count 450 Seg Neutrophils % 88.2 H 10/18/19 06:55 Clean Catch Midstream Urine Culture - Final NO GROWTH 2 DAYS 10/18/19 10/20/19 04:40 12:57 Troponin I < 0.012 < 0.012 NT-Pro-B Natriuret Pep 1210 H Impressions: Chest X-Ray 10/18/19 04:51 IMPRESSION: Minimal left basilar atelectasis. Assessment and Plan - Diagnosis (1) Gram-positive bacteremia Is this a current diagnosis for this admission?: Yes Plan: Most likely contamination. Cultures from 10/18/2019 1 out of 2 growing gram-positive cocci in clusters pending sensitivity likely contamination. Repeat blood cultures no growth so far. Continue empiric vancomycin pending sensitivity. (2) Acute respiratory failure with hypoxemia Is this a current diagnosis for this admission?: Yes Plan: Moderate improvement. SPO2 WNL on RA. Most likely to acute COPD/asthma exacerbation. Continue telemetry, IV steroids, empiric antibiotics, duo nebs, VILLAGRAN, LABA, ICS, incentive spirometry. (3) Acute exacerbation of COPD with asthma Is this a current diagnosis for this admission?: Yes Plan: History of COPD/asthma non-oxygen dependent. As per problem #1. (4) KYLE (acute kidney injury) Is this a current diagnosis for this admission?: Yes Plan: Resolved. Euvolemic. Electrolytes WNL. Likely prerenal. Denies any history of CKD. Monitor electrolytes and volume status, replace electrolytes as needed. Avoid nephrotoxic meds. BMP tomorrow. (5) Hyperlipidemia Is this a current diagnosis for this admission?: Yes Plan: Diet and lifestyle modification recommended. Restart home meds. Outpatient PCP follow-up. (6) HTN (hypertension) Is this a current diagnosis for this admission?: Yes Plan: Normotensive. Euvolemic. Restart home meds. Adjust meds as needed. PRN IV hydralazine and metoprolol. (7) Bipolar depression Is this a current diagnosis for this admission?: Yes Plan: Denies any suicidal or homicidal ideation. Restart home meds. Outpatient psychiatry and PCP follow-up. (8) Tobacco abuse Is this a current diagnosis for this admission?: Yes Plan: Extensively advised on quitting. NicoDerm patch provided. (9) Obesity (BMI 30.0-34.9) Is this a current diagnosis for this admission?: Yes Plan: BMI 32.5. Will obtain TSH. Diet and lifestyle modification recommended. (10) Hx of migraine headaches Is this a current diagnosis for this admission?: Yes Plan: Restart home meds. Denies any focal neurological symptoms. (11) Chest pain Qualifiers: Chest pain type: unspecified Qualified Code(s): R07.9 - Chest pain, unspecified Is this a current diagnosis for this admission?: Yes Plan: Moderate improvement. Noncardiac. Troponins negative x3. EKG no acute changes. Denies any history of CAD. Presented with mildly elevated proBNP. 2D echo LVEF WNL. This is unlikely cardiac in origin, most likely musculoskeletal. Patient has diffuse tenderness to palpation over anterior chest. Continue supportive measures. (12) Hypotension Is this a current diagnosis for this admission?: Yes Plan: Resolved. Euvolemic and normotensive. Very unlikely that patient has SIRS/Sepsis. Lactic acid WNL, SPO2 WNL on RA, heart rate WNL, RR WNL. Mild neutrophilic leukocytosis which could be due to outpatient p.o. steroids for acute COPD exacerbation. Most likely mechanical air. Patient has had 2 episodes of low blood pressure recorded EMR however patient is alert oriented x3 in no apparent distress. Admit to telemetry. Monitor vital status.
[2019-10-20] MEDS: LURASIDONE HCL 40 MG TABLET PO SCH (17:01)
[2019-10-20] MEDS ORDERED: QUETIAPINE FUMARATE 100 MG TABLET PO SCH ×2 (22:00)
[2019-10-21] MEDS: OXYCODONE-ACETAMINOPHEN 5-325 MG TABLET PO PRN (02:32)
[2019-10-21 05:14] LABS: HEMATOCRIT 31.3 % (36.0-47.0); HEMOGLOBIN 10.4 g/dL (12.0-15.5); MEAN CORPUSCULAR HEMOGLOBIN 29.4 pg (27.0-33.4); MEAN CORPUSCULAR HGB CONC 33.1 g/dL (32.0-36.0); MEAN CORPUSCULAR VOLUME 89 fl (80-97); PLATELET COUNT 470 10^3/uL (150-450); RED BLOOD COUNT 3.53 10^6/uL (3.72-5.28); WHITE BLOOD COUNT 16.4 10^3/uL (4.0-10.5)
[2019-10-21] MEDS: METHYLPREDNISOLONE INJ 40 MG/1 ML SDV IV SCH (05:38)
[2019-10-21] MEDS: HEPARIN SOD (PORCINE) 5,000 UNIT/ML 1 ML VIAL SUBCUT SCH (05:38)
[2019-10-21] MEDS: GABAPENTIN 400 MG CAPSULE PO SCH (05:39)
[2019-10-21] MEDS: PROPRANOLOL HCL 10 MG TABLET PO SCH (05:42)
[2019-10-21] MEDS: IPRATROPIUM/ALBUTEROL 0.5-2.5 MG/3 ML AMPUL NEB SCH (08:33)
[2019-10-21] MEDS: FLUTICASONE/VILANTEROL 200-25 MCG/DOSE IH SCH (09:25)
[2019-10-21] MEDS: FLUTICASONE NASAL SPRAY 50 MCG/SPRY 120 SPRAY/16 GM NASL SCH (09:25)
[2019-10-21] MEDS: NICOTINE 14 MG/24 HR PATCH.TD24 TD SCH (09:25)
[2019-10-21] MEDS: TOPIRAMATE 25 MG TABLET PO SCH (09:26)
[2019-10-21] MEDS: AMLODIPINE BESYLATE 2.5 MG TABLET PO SCH (09:26)
[2019-10-21] MEDS: FLUOXETINE HCL 20 MG CAPSULE PO SCH (09:26)
[2019-10-21] MEDS: DOCUSATE SODIUM 100 MG CAPSULE PO SCH (09:27)
[2019-10-21] MEDS: ATORVASTATIN CALCIUM 20 MG TABLET PO SCH (09:27)
[2019-10-21] MEDS: LAMOTRIGINE 25 MG TAB.CHEW PO SCH (09:27)
[2019-10-21] MEDS: AZITHROMYCIN 250 MG TABLET PO SCH (09:27)
[2019-10-21] MEDS: MONTELUKAST SODIUM 10 MG TABLET PO SCH (09:29)
[2019-10-21 09:40] VITALS: BP 115/65
--- NOTE | 2019-10-21 11:03 | PDOC DISCHARGE SUMMARY ---
Impression - Admit/DC Date/PCP Admission Date/Primary Care Provider: 10/18/19 06:43 Discharge Date: 10/21/19 - Discharge Diagnosis (1) Gram-positive bacteremia Is this a current diagnosis for this admission?: Yes (2) Acute respiratory failure with hypoxemia Is this a current diagnosis for this admission?: Yes (3) Acute exacerbation of COPD with asthma Is this a current diagnosis for this admission?: Yes (4) KYLE (acute kidney injury) Is this a current diagnosis for this admission?: Yes (5) Hyperlipidemia Is this a current diagnosis for this admission?: Yes (6) HTN (hypertension) Is this a current diagnosis for this admission?: Yes (7) Bipolar depression Is this a current diagnosis for this admission?: Yes (8) Tobacco abuse Is this a current diagnosis for this admission?: Yes (9) Obesity (BMI 30.0-34.9) Is this a current diagnosis for this admission?: Yes (10) Hx of migraine headaches Is this a current diagnosis for this admission?: Yes (11) Chest pain Is this a current diagnosis for this admission?: Yes (12) Hypotension Is this a current diagnosis for this admission?: Yes - Additional Information Discharge Diet: Cardiac Discharge Activity: Activity As Tolerated Referrals: [facility] [Provider Group] ([phone] NO ANSWER AT PROVIDER'S OFFICE A MESSAGE WAS LEFT TO CALL PATIENT WITH A HOSPITAL FOLLOW UP APPT. DATE AND TIME.) Home Medications: Albuterol Sulfate [Proair HFA Inhalation Aerosol 8.5 gm MDI] 2 puff IH ASDIR PRN 10/18/19 Albuterol Sulfate [Ventolin 0.083% Neb 2.5 mg/3 mL Ampul] 1 vial NEB RTQ4HP PRN 10/18/19 Amlodipine Besylate [Norvasc 5 mg Tablet] 2.5 mg PO DAILY 10/18/19 Atorvastatin Calcium [Lipitor 20 mg Tablet] 20 mg PO DAILY 10/18/19 Budesonide/Formoterol Fumarate [Symbicort HFA 160-4.5 mcg Inhaler 6 gm] 2 puff IH Q12 10/18/19 Clonazepam [Klonopin] 0.5 mg PO Q8HP PRN 10/18/19 Fluoxetine HCl [Prozac] 80 mg PO QAM 10/18/19 Fluticasone Propionate [Flonase Nasal [place] 50 Mcg/[place] 16 gm] 2 sprays NASL Q12 10/18/19 Furosemide [Lasix 20 mg Tablet] 20 mg PO DAILY 10/18/19 Gabapentin [Neurontin] 1,200 mg PO Q8 10/18/19 Hydroxyzine HCl [Atarax 50 mg Tablet] 50 mg PO QIDP PRN 10/18/19 Lamotrigine [Lamictal] 25 mg PO DAILY 10/18/19 Lurasidone HCl [Latuda 40 mg Tablet] 40 mg PO QPM 10/18/19 Montelukast Sodium [Singulair 10 mg Tablet] 10 mg PO DAILY 10/18/19 Omeprazole 40 mg PO DAILY 10/18/19 Propranolol HCl [Inderal 10 mg Tablet] 10 mg PO Q8 10/18/19 Quetiapine Fumarate [Seroquel 100 mg Tablet] 50 mg PO DAILYP PRN 10/18/19 Quetiapine Fumarate [Seroquel 100 mg Tablet] 100 mg PO HSP PRN 10/18/19 Sumatriptan Succinate [Imitrex 25 mg Tablet] 25 mg PO DAILYP PRN 10/18/19 Topiramate [Topamax] 50 mg PO Q12 10/18/19 Umeclidinium [place] [Incruse Ellipta] 1 puff IH DAILY 10/18/19 History of Present Illiness History of Present Illness: GIN HADDAD is a 49 year old female with past medical history of tension, tobacco abuse, non-oxygen dependent COPD, migraine headaches, depression, bipolar, asthma, presenting to ED complaining of worsening shortness of breath associated with productive cough and pleuritic chest pain for the last 3 days. Was seen by PCP started on prednisone and azithromycin with no significant imp rovement, denies any fever, chills any recent travel, sick contacts, nausea, vomiting, diarrhea, constipation or any urinary symptoms. Hospital Course Hospital Course: (1) Gram-positive bacteremia Most likely contamination. Blood culture 1 out of 4 positive for staph epidermidis. No signs and symptoms of systemic infection. Repeat blood cultures no growth. Received 2 days of IV vancomycin. (2) Acute respiratory failure with hypoxemia Resolved. Moderate improvement. SPO2 WNL on RA. Benign lung examination. Most likely to acute COPD/asthma exacerbation. Was admitted to continue telemetry and started IV steroids, empiric antibiotics, duo nebs, VILLAGRAN, LABA, ICS, incentive spirometry. Received 4 days of IV steroids. Received 4 days of p.o. azithromycin. Was advised to restart her VILLAGRAN, LABA, ICS and follow-up with PCP and magnetometer operator. (3) Acute exacerbation of COPD with asthma History of COPD/asthma non-oxygen dependent. As per problem #1. (4) KYLE (acute kidney injury) Resolved. Euvolemic. Electrolytes WNL. Likely prerenal. Denies any history of CKD. (5) Hyperlipidemia Diet and lifestyle modification recommended. Restarted on home meds. Outpatient PCP follow-up recommended. (6) HTN (hypertension) Normotensive. Euvolemic. Restarted home meds. PRN IV hydralazine and metoprolol. Outpatient PCP follow-up recommended. (7) Bipolar depression Denies any suicidal or homicidal ideation. Restarted home meds. Outpatient PCP and psychiatry follow-up recommended. (8) Tobacco abuse Extensively advised on quitting. NicoDerm patch provided. (9) Obesity (BMI 30.0-34.9) BMI 32.5. Diet and lifestyle modification recommended. (10) Hx of migraine headaches Restarted home meds. Denies any focal neurological symptoms. Outpatient PCP and neurology follow-up recommended. (11) Chest pain Resolved. Noncardiac. Troponins negative x2. EKG no acute changes. Denies any history of CAD. Presented with mildly elevated proBNP. 2D echo LVEF WNL. Patient had diffuse tenderness to palpation over anterior chest on admission. Was started on antiplatelets and continued her statins. (12) Hypotension Resolved. Euvolemic and normotensive. Very unlikely that patient has SIRS/Sepsis. Lactic acid WNL, SPO2 WNL on RA, heart rate WNL, RR WNL. Mild neutrophilic leukocytosis which could be due to outpatient p.o. steroids for acute COPD exacerbation. Most likely mechanical error. Patient has had 2 episodes of low blood pressure recorded EMR however patient is alert oriented x3 in no apparent distress. Admitted to telemetry. Vitals monitored. Physical Exam Vital Signs: Temp Pulse Resp BP Pulse Ox 97.8 F 78 16 115/65 94 10/21/19 09:35 10/21/19 09:35 10/21/19 09:35 10/21/19 09:35 10/21/19 09:35 Intake & Output 10/20/19 10/21/19 10/22/19 06:59 06:59 06:59 Intake Total 1058 1264 Balance 1058 1264 Weight 84.2 kg 84.2 kg General appearance: PRESENT: morbidly obese Head exam: PRESENT: atraumatic, normocephalic Respiratory exam: PRESENT: clear to auscultation mansi. ABSENT: rales, rhonchi, wheezes Cardiovascular exam: PRESENT: RRR. ABSENT: diastolic murmur, rubs, systolic murmur GI/Abdominal exam: PRESENT: normal bowel sounds, soft. ABSENT: distended, guarding, mass, organolmegaly, rebound, tenderness Neurological exam: PRESENT: alert, awake, oriented to person, oriented to place, oriented to time, oriented to situation, CN II-XII grossly intact. ABSENT: motor sensory deficit Results Laboratory Results: WBC 16.4 10^3/uL (4.0-10.5) H 10/21/19 04:27 RBC 3.53 10^6/uL (3.72-5.28) L 10/21/19 04:27 Hgb 10.4 g/dL (12.0-15.5) L 10/21/19 04:27 Hct 31.3 % (36.0-47.0) L 10/21/19 04:27 MCV 89 fl (80-97) 10/21/19 04:27 MCH 29.4 pg (27.0-33.4) 10/21/19 04:27 MCHC 33.1 g/dL (32.0-36.0) 10/21/19 04:27 RDW 17.0 % (11.5-14.0) H 10/21/19 04:27 Plt Count 470 10^3/uL (150-450) H 10/21/19 04:27 Lymph % (Auto) 9.5 % (13-45) L 10/20/19 04:58 Power % (Auto) 2.3 % (3-13) L 10/20/19 04:58 Eos % (Auto) 0.0 % (0-6) 10/20/19 04:58 Baso % (Auto) 0.0 % (0-2) 10/20/19 04:58 Absolute Neuts (auto) 15.8 10^3/uL (1.7-8.2) H 10/20/19 04:58 Absolute Lymphs (auto) 1.7 10^3/uL (0.5-4.7) 10/20/19 04:58 Absolute Monos (auto) 0.4 10^3/uL (0.1-1.4) 10/20/19 04:58 Absolute Eos (auto) 0.0 10^3/uL (0.0-0.6) 10/20/19 04:58 Absolute Basos (auto) 0.0 10^3/uL (0.0-0.2) 10/20/19 04:58 Seg Neutrophils % 88.2 % (42-78) H 10/20/19 04:58 PT 12.6 SEC (11.4-15.4) 10/18/19 04:40 INR 0.94 10/18/19 04:40 D-Dimer < 0.27 ug/mL (0.00-0.50) 10/18/19 04:40 Carbonic Acid 1.20 mmol/L (1.05-1.35) 10/18/19 05:36 HCO3/H2CO3 Ratio 17:1 10/18/19 05:36 ABG pH 7.33 (7.35-7.45) L 10/18/19 05:36 ABG pCO2 39.9 mmHg (35-45) 10/18/19 05:36 ABG pO2 74.2 mmHg (80-100) L 10/18/19 05:36 ABG HCO3 20.8 mmol/L (20-24) 10/18/19 05:36 ABG Total CO2 22.0 mmol/L (21-25) 10/18/19 05:36 ABG O2 Saturation 94.1 % (94-98) 10/18/19 05:36 ABG Base Excess -4.7 mmol/L 10/18/19 05:36 FiO2 ROOM AIR 10/18/19 05:36 Sodium 137.4 mmol/L (137-145) 10/19/19 08:02 Potassium 4.8 mmol/L (3.6-5.0) 10/19/19 08:02 Chloride 105 mmol/L (98-107) 10/19/19 08:02 Carbon Dioxide 22 mmol/L (22-30) 10/19/19 08:02 Anion Gap 10 (5-19) 10/19/19 08:02 BUN 22 mg/dL (7-20) H 10/19/19 08:02 Creatinine 1.16 mg/dL (0.52-1.25) 10/19/19 08:02 Est GFR ( Amer) > 60 (>60) 10/19/19 08:02 Est GFR (MDRD) Non-Af 50 (>60) L 10/19/19 08:02 Glucose 137 mg/dL (75-110) H 10/19/19 08:02 POC Glucose 104 mg/dL (70-110) 10/18/19 05:20 Lactic Acid 1.6 mmol/L (0.7-2.1) 10/18/19 11:21 Calcium 9.5 mg/dL (8.4-10.2) 10/19/19 08:02 Phosphorus 3.7 mg/dL (2.5-4.5) 10/19/19 04:54 Total Bilirubin 0.1 mg/dL (0.2-1.3) L 10/19/19 04:54 Direct Bilirubin 0.1 mg/dL (0.0-0.4) 10/19/19 04:54 Neonat Total Bilirubin Not Reportable 10/19/19 04:54 Neonat Direct Bilirubin Not Reportable 10/19/19 04:54 Neonat Indirect Bili Not Reportable 10/19/19 04:54 AST 33 U/L (14-36) 10/19/19 04:54 ALT 15 U/L (<35) 10/19/19 04:54 Alkaline Phosphatase 109 U/L (38-126) 10/19/19 04:54 Troponin I < 0.012 ng/mL 10/20/19 12:57 NT-Pro-B Natriuret Pep 1210 pg/mL (<125) H 10/18/19 04:40 Total Protein 6.4 g/dL (6.3-8.2) 10/19/19 04:54 Albumin 3.4 g/dL (3.5-5.0) L 10/19/19 04:54 Urine Color YELLOW 10/18/19 06:55 Urine Appearance CLEAR 10/18/19 06:55 Urine pH 5.0 (5.0-9.0) 10/18/19 06:55 Ur Specific [place] 1.024 10/18/19 06:55 Urine Protein NEGATIVE mg/dL (NEGATIVE) 10/18/19 06:55 Urine Glucose (UA) NEGATIVE mg/dL (NEGATIVE) 10/18/19 06:55 Urine Ketones NEGATIVE mg/dL (NEGATIVE) 10/18/19 06:55 Urine Blood NEGATIVE (NEGATIVE) 10/18/19 06:55 Urine Nitrite (Reflex) NEGATIVE (NEGATIVE) 10/18/19 06:55 Urine Bilirubin NEGATIVE (NEGATIVE) 10/18/19 06:55 Urine Urobilinogen NEGATIVE mg/dL (<2.0) 10/18/19 06:55 Leukocyte Esterase Rfl TRACE (NEGATIVE) H 10/18/19 06:55 Urine RBC (Auto) 0 /HPF 10/18/19 06:55 U Hyaline Cast (Auto) 9 /LPF 10/18/19 06:55 Urine Bacteria (Auto) TRACE /HPF 10/18/19 06:55 Urine WBC (Reflex) 3 /HPF 10/18/19 06:55 Squamous Epi Cells Auto 3 /HPF 10/18/19 06:55 Urine Mucus (Auto) RARE /LPF 10/18/19 06:55 Urine Ascorbic Acid NEGATIVE (NEGATIVE) 10/18/19 06:55 Urine Opiates Screen NEGATIVE 10/18/19 06:55 Urine Methadone Screen NEGATIVE 10/18/19 06:55 Ur Barbiturates Screen NEGATIVE 10/18/19 06:55 Ur Phencyclidine Scrn NEGATIVE 10/18/19 06:55 Ur Amphetamines Screen NEGATIVE 10/18/19 06:55 U Benzodiazepines Scrn NEGATIVE 10/18/19 06:55 Urine Cocaine Screen NEGATIVE 10/18/19 06:55 U Marijuana (THC) Screen NEGATIVE 10/18/19 06:55 Influenza A (Rapid) NEGATIVE (NEGATIVE) 10/18/19 07:24 Influenza B (Rapid) NEGATIVE (NEGATIVE) 10/18/19 07:24 10/18/19 10/20/19 04:40 12:57 Troponin I < 0.012 < 0.012 NT-Pro-B Natriuret Pep 1210 H Impressions: Chest X-Ray 10/18/19 04:51 IMPRESSION: Minimal left basilar atelectasis. Stroke Is this a Stroke Patient?: No Acute Heart Failure - Is this a Heart Failure Patient?: No
== END 2019-10-21 09:55 | disposition home or self-care (01) ==
LOC: ER 04:30 → EH 06:43 → 3W 08:11 → INTOOBSV 08:42 → OBSVTOIN 08:42 → 5 10-20 00:39
PROVIDERS: ADMIT Internal Medicine; ATTEND Internal Medicine
DX: R78.81 Bacteremia (principal); J44.1 Chronic obstructive pulmonary disease with (acute) exacerbation; J45.901 Unspecified asthma with (acute) exacerbation; J96.01 Acute respiratory failure with hypoxia; I95.9 Hypotension, unspecified; F17.210 Nicotine dependence, cigarettes, uncomplicated; R94.31 Abnormal electrocardiogram [ECG] [EKG]; I44.0 Atrioventricular block, first degree; E78.5 Hyperlipidemia, unspecified; N17.9 Acute kidney failure, unspecified; I10 Essential (primary) hypertension; F31.9 Bipolar disorder, unspecified; G43.909 Migraine, unspecified, not intractable, without status migrainosus; R07.89 Other chest pain; E66.01 Morbid (severe) obesity due to excess calories; D72.828 Other elevated white blood cell count; Z79.899 Other long term (current) drug therapy; Z68.32 Body mass index [BMI] 32.0-32.9, adult
CPT/HCPCS: 93005; 99285; 96361; 96375; 96365; 96368; 36415 ×4; 87040 ×2; 87086; 82962; 82803; 83605; 84100; 85025 ×3; 85027; 85610; 87077; 80053 ×2; 81001; 84484 ×2; 87186; 80307; 85379; 87804; 83880; 93306; 71045; 94799; 93010; 94640 ×5; G0378 ×4; A9270 ×65; J1644 ×3; J2920 ×4; J2930; J2405; J7060 ×2; J7120; J3370 ×2; J0456; J1956; J3490; J7620; S0183

== ENCOUNTER 2019-12-04 07:49 | Day surgery (SDC) | payer MEDICARE, MEDICAID ==
[2019-12-04] MEDS ORDERED: CLINDAMYCIN 600 MG/D5W RTU 600 MG/50 ML RTUPB IV ONE (08:03)
[2019-12-04 08:18] LABS: HEMATOCRIT 34.8 % (36.0-47.0); HEMOGLOBIN 11.6 g/dL (12.0-15.5); MEAN CORPUSCULAR HEMOGLOBIN 31.9 pg (27.0-33.4); MEAN CORPUSCULAR HGB CONC 33.3 g/dL (32.0-36.0); MEAN CORPUSCULAR VOLUME 96 fl (80-97); PLATELET COUNT 382 10^3/uL (150-450); RED BLOOD COUNT 3.64 10^6/uL (3.72-5.28); RED CELL DISTRIBUTION WIDTH 19.6 % (11.5-14.0); WHITE BLOOD COUNT 9.7 10^3/uL (4.0-10.5)
[2019-12-04 08:37] LABS: ANION GAP 11 (5-19); BLOOD UREA NITROGEN 32 mg/dL (7-20); CALCIUM 9.2 mg/dL (8.4-10.2); CARBON DIOXIDE 19 mmol/L (22-30); CHLORIDE 111 mmol/L (98-107); GLUCOSE 76 mg/dL (75-110); POTASSIUM 4.1 mmol/L (3.6-5.0)
--- NOTE | 2019-12-04 09:30 | RADIOLOGY REPORT (SQ) ---
EXAM DESCRIPTION: CHEST SINGLE VIEW COMPLETED DATE/TIME: 12/04/2019 9:08 am REASON FOR STUDY: PREOP COMPARISON: AP chest 10/18/2019 EXAM PARAMETERS: NUMBER OF VIEWS: One view. TECHNIQUE: Single frontal radiographic view of the chest acquired. RADIATION DOSE: NA LIMITATIONS: None. FINDINGS: LUNGS AND PLEURA: Minimal chronic scarring or atelectasis left lateral lung base. Lungs are otherwise well inflated and clear. No pleural effusion. No pneumothorax. MEDIASTINUM AND HILAR STRUCTURES: No masses. Contour normal. HEART AND VASCULAR STRUCTURES: Heart normal in size. Normal vasculature. BONES: Old healed bilateral rib fractures HARDWARE: None in the chest. OTHER: No other significant finding. IMPRESSION: No acute findings TECHNICAL DOCUMENTATION: JOB ID: [id number] 2010 [employer]- All Rights Reserved Reading location - IP/workstation name: [email or web address]
[2019-12-04] MEDS ORDERED: ONDANSETRON HCL INJ/PF 4 MG/2 ML SDV ONE ×2 (09:37→11:15)
[2019-12-04] MEDS ORDERED: MIDAZOLAM 2 MG/2 ML INJ ONE (09:37)
[2019-12-04] MEDS ORDERED: PROPOFOL INJ 200 MG/20 ML VIAL IV ONE (09:37)
[2019-12-04] MEDS ORDERED: FENTANYL CITRATE INJ/PF 100 MCG/2 ML AMPUL ONE (09:37)
[2019-12-04] MEDS ORDERED: ONDANSETRON HCL INJ/PF 4 MG/2 ML SDV IV PRN (10:28)
[2019-12-04] MEDS ORDERED: OXYCODONE-ACETAMINOPHEN 5-325 MG TABLET PO PRN ×2 (10:28)
[2019-12-04] MEDS ORDERED: PROMETHAZINE HCL INJ 25 MG/1 ML VIAL IV PRN ×2 (10:28)
[2019-12-04] MEDS ORDERED: FENTANYL CITRATE INJ/PF 100 MCG/2 ML AMPUL IV PRN ×3 (10:28)
[2019-12-04] MEDS ORDERED: DIPHENHYDRAMINE HCL 50 MG/ML VIAL IV PRN (10:28)
[2019-12-04] MEDS ORDERED: MEPERIDINE HCL/PF INJ 25 MG/1 ML DISP.SYRIN IV PRN (10:28)
[2019-12-04] MEDS ORDERED: MORPHINE SULFATE 10 MG/ML INJ IV PRN (10:28)
[2019-12-04] MEDS ORDERED: PHENYLEPHRINE HCL INJ/PF 10 MG/1 ML SDV ONE (10:42)
--- NOTE | 2019-12-04 11:07 | Operative Report ---
Operative Report DATE OF SURGERY: 12/04/19 PREOPERATIVE DIAGNOSIS: Pathologic fracture right medial tibial plateau OPERATION: Biopsy of right medial tibial plateau lesion. Intralesional resection right medial tibial plateau using. Open reduction internal fixation right medial tibial plateau fracture SURGEON: JOHNNY SILVERMAN ANESTHESIA: Spinal TISSUE REMOVED OR ALTERED: Frozen section to pathology. Permanent section to p athology ESTIMATED BLOOD LOSS: Minimal PROCEDURE: With the patient supine on the operating table right lower extremities prepped and draped in sterile fashion. The limb is elevated for exsanguination tourniquet inflated 280 torr. A hockey-stick type incision is made over the anterior medial aspect of the tibial plateau and sharp dissection was used carried incision through the retinaculum down to the periosteum. The periosteum is elevated. A hole was fashioned over the anteromedial aspect of the proximal tibial plateau and this enters the underlying cavitary defect which was filled with a white glistening fibrous tissue. This is sent to pathology for frozen section diagnosis. Diagnosis is notable for chronic inflammation final diagn osis deferred. Based on the radiographic appearance which suggest a benign lesion and the limited information from a frozen section, I proceeded with an intralesional resection of the lesion using a curette. The articular defect is then elevated using a bone tamp so that it seems to be congruous with both the medial and lateral structure. A Sally medial titanium plate is placed over the medial aspect of the tibia and secured with 3 screws proximally and 3 screws distally. The residual bone defect is then filled with a combination of crushed cancellus bone and V toss bone substitute. The tourniquet is deflated. The wound is irrigated bulb lavage. Hemostasis obtained with electrocautery. The wound is then closed in layers interrupted Vicryl followed by manny. A sterile compressive dressing is applied and the patient is returned to the PACU in satisfactory condition.
[2019-12-04] MEDS ORDERED: PROMETHAZINE HCL INJ 25 MG/1 ML VIAL ONE (11:29)
[2019-12-04] MEDS ORDERED: MORPHINE SULFATE 10 MG/ML INJ ONE (11:29)
--- NOTE | 2019-12-04 12:32 | RADIOLOGY REPORT (SQ) ---
EXAM DESCRIPTION: KNEE RIGHT 2 VIEWS; NO CHG FLUORO COMPLETED DATE/TIME: 12/04/2019 12:20 pm REASON FOR STUDY: ORIF RIGHT KNEE/TIBIAL PLATEAU ASST WITH FLUORO IN OR S82.101A UNSP FRACTURE OF UPPER END OF RIGHT TIBIA, INIT FOR COMPARISON: None. FLUOROSCOPY TIME: 1.1 minutes. 3 images submitted to PACS. TECHNIQUE: Fluoroscopic images of the right knee were obtained intraoperatively during an ORIF of a medial plateau fracture with placement of a medial plate and several screws. LIMITATIONS: None. FINDINGS: Integrated into the Technique. IMPRESSION: IMAGE(S) OBTAINED DURING PROCEDURE. COMMENT: Quality ID [id number]: Final reports for procedures using fluoroscopy that document radiation exp osure indices, or exposure time and number of fluorographic images (if radiation exposure indices are not available) Please consult full operative report of the attending physician for description of the procedure. TECHNICAL DOCUMENTATION: JOB ID: [id number] 2010 [employer]- All Rights Reserved Reading location - IP/workstation name: [email or web address]
--- NOTE | 2019-12-04 12:32 | RADIOLOGY REPORT (SQ) ---
EXAM DESCRIPTION: KNEE RIGHT 2 VIEWS; NO CHG FLUORO COMPLETED DATE/TIME: 12/04/2019 12:20 pm REASON FOR STUDY: ORIF RIGHT KNEE/TIBIAL PLATEAU ASST WITH FLUORO IN OR S82.101A UNSP FRACTURE OF UPPER END OF RIGHT TIBIA, INIT FOR COMPARISON: None. FLUOROSCOPY TIME: 1.1 minutes. 3 images submitted to PACS. TECHNIQUE: Fluoroscopic images of the right knee were obtained intraoperatively during an ORIF of a medial plateau fracture with placement of a medial plate and several screws. LIMITATIONS: None. FINDINGS: Integrated into the Technique. IMPRESSION: IMAGE(S) OBTAINED DURING PROCEDURE. COMMENT: Quality ID [id number]: Final reports for procedures using fluoroscopy that document radiation exp osure indices, or exposure time and number of fluorographic images (if radiation exposure indices are not available) Please consult full operative report of the attending physician for description of the procedure. TECHNICAL DOCUMENTATION: JOB ID: [id number] 2010 [employer]- All Rights Reserved Reading location - IP/workstation name: [email or web address]
[2019-12-04] MEDS ORDERED: ONDANSETRON 4 MG TAB.RAPDIS SL PRN (13:13)
[2019-12-04] MEDS ORDERED: RINGERS SOLUTION,LACTATED 1,000 ML IV PRN (13:13)
--- NOTE | 2019-12-04 13:29 | EKG REPORT ---
SEVERITY:- ABNORMAL ECG - SINUS RHYTHM BORDERLINE R WAVE PROGRESSION, ANTERIOR LEADS BORDERLINE T ABNORMALITIES, ANTERIOR LEADS PROLONGED QT INTERVAL : Confirmed by: Miguelito Valenzuela MD 04-Dec-2019 13:28:40
[2019-12-04] MEDS: CLINDAMYCIN 600 MG/D5W RTU 600 MG/50 ML RTUPB IV SCH ×2 (13:45→21:47)
[2019-12-04] MEDS: MORPHINE SULFATE 10 MG/ML INJ IV PRN ×4 (13:55→21:49)
[2019-12-04] MEDS: OXYCODONE HCL IR 5 MG TABLET PO PRN (16:42)
[2019-12-04] MEDS ORDERED: HYDROCODONE/ACETAMINOPHEN 5-325 MG TABLET PO PRN (19:23)
[2019-12-04] MEDS ORDERED: ASPIRIN PO PRN (19:23)
[2019-12-04] MEDS ORDERED: ALBUTEROL SULFATE 0.083% NEB 2.5 MG/3 ML AMPUL NEB PRN (19:23)
[2019-12-04] MEDS ORDERED: SUMATRIPTAN SUCCINATE 25 MG TABLET PO PRN (19:23)
[2019-12-04] MEDS ORDERED: (PENDING PHARMACY ID) (Clonazepam [Klonopin] 0.5 MG) PO PRN (19:23)
[2019-12-04] MEDS ORDERED: ALBUTEROL SULFATE HFA (90 MCG/PUFF) 8 GM MDI (1 MDI/ER DISP) IH PRN (19:23)
[2019-12-04] MEDS ORDERED: BUTALBITAL PO PRN (19:23)
[2019-12-04] MEDS ORDERED: [UNRECOGNIZED DRUG - OTHER] PO PRN (19:23)
[2019-12-04] MEDS ORDERED: CAFFEINE PO PRN (19:23)
[2019-12-04] MEDS ORDERED: QUETIAPINE FUMARATE 100 MG TABLET PO PRN ×2 (19:23)
[2019-12-04] MEDS ORDERED: HYDROXYZINE HCL 10 MG TABLET PO PRN (19:29)
[2019-12-04] MEDS ORDERED: LURASIDONE HCL 40 MG TABLET PO SCH (20:30)
[2019-12-04] MEDS: TOPIRAMATE 25 MG TABLET PO SCH (21:47)
[2019-12-04] MEDS: PROPRANOLOL HCL 10 MG TABLET PO SCH (21:48)
[2019-12-04] MEDS: GABAPENTIN 400 MG CAPSULE PO SCH (21:48)
[2019-12-04] MEDS: CLONAZEPAM 1 MG TABLET PO PRN (21:49)
[2019-12-04] MEDS ORDERED: (PENDING PHARMACY ID) (Gabapentin [Gabapentin] 800 MG) PO SCH (22:00)
[2019-12-05] MEDS: OXYCODONE HCL IR 5 MG TABLET PO PRN ×3 (00:41→15:32)
[2019-12-05] MEDS: GABAPENTIN 400 MG CAPSULE PO SCH ×2 (05:44→15:31)
[2019-12-05] MEDS: CLONAZEPAM 1 MG TABLET PO PRN (05:45)
--- NOTE | 2019-12-05 06:14 | PDOC DISCHARGE SUMMARY ---
Impression - Admit/DC Date/PCP Admission Date/Primary Care Provider: 12/04/19 07:49 SYED ALMAGUER PA-C Discharge Date: 12/05/19 - Discharge Diagnosis (1) Tibial plateau fracture, right Is this a current diagnosis for this admission?: Yes - Additional Information Resuscitation Status: Full Code Discharge Diet: Regular Discharge Activity: Balance Activity w/Rest, No tub bath Referrals: JOHNNY SILVERMAN MD [ACTIVE STAFF] - 12/17/19 10:45 am Home Medications: Albuterol Sulfate [Proair HFA Inhalation Aerosol 8.5 gm MDI] 2 puff IH ASDIR PRN 10/18/19 Albuterol Sulfate [Ventolin 0.083% Neb 2.5 mg/3 mL Ampul] 1 vial NEB RTQ4HP PRN 10/18/19 Atorvastatin Calcium [Lipitor 20 mg Tablet] 20 mg PO DAILY 10/18/19 Clonazepam [Klonopin] 0.5 mg PO Q8HP PRN 10/18/19 Fluticasone Propionate [Flonase Nasal [place] 50 Mcg/[place] 16 gm] 1 sprays NAREB DAILY 10/18/19 Furosemide [Lasix 20 mg Tablet] 20 mg PO DAILY 10/18/19 Hydroxyzine HCl [Atarax 50 mg Tablet] 50 mg PO QIDP PRN 10/18/19 Lurasidone HCl [Latuda 40 mg Tablet] 40 mg PO QPM 10/18/19 Montelukast Sodium [Singulair 10 mg Tablet] 10 mg PO DAILY 10/18/19 Omeprazole 40 mg PO DAILY 10/18/19 Propranolol HCl [Inderal 10 mg Tablet] 10 mg PO Q12 10/18/19 Quetiapine Fumarate [Seroquel 100 mg Tablet] 50 mg PO DAILYP PRN 10/18/19 Quetiapine Fumarate [Seroquel 100 mg Tablet] 100 mg PO HSP PRN 10/18/19 Sumatriptan Succinate [Imitrex 25 mg Tablet] 25 mg PO DAILYP PRN 10/18/19 Topiramate [Topamax] 50 mg PO Q12 10/18/19 Umeclidinium [place] [Incruse Ellipta] 1 puff IH DAILY 10/18/19 Amlodipine Besylate [Norvasc 5 mg Tablet] 5 mg PO DAILY 12/04/19 Aspirin [Ecotrin 81 mg EC Tablet] 81 mg PO DAILY 12/04/19 Atenolol [Tenormin] 12.5 mg PO DAILY 12/04/19 Budesonide/Formoterol Fumarate [Symbicort Hfa 80-4.5 Mcg Inhaler 6.9 gm] 2 puff IH Q12 12/04/19 Butalbital/Aspirin/Caffeine [Xzznkw-Hizbzhx-Pksiu 50-325-40] 1 each PO Q4HP PRN MDD 6 TABS 12/04/19 Docusate Sodium [Colace 100 mg Capsule] 100 mg PO DAILY 12/04/19 Fluoxetine HCl [Prozac] 80 mg PO DAILY 12/04/19 Gabapentin 800 mg PO Q8 12/04/19 Hydrocodone/Acetaminophen [Shirley 5-325 mg Tablet] 1 tab PO Q6HP PRN 12/04/19 Lamotrigine 150 mg PO DAILY 12/04/19 History of Present Illiness History of Present Illness: GIN HADDAD is a 49 year old female Patient is a 49-year-old white female who presented with complaints of right knee pain and was found to have a cystic lesion in the medial plateau with a depressed dye punch fracture superimposed on this. Hospital Course Hospital Course: The patient was taken to the operating room and underwent an open reduction inte rnal fixation of the tibial plateau fracture with associated biopsy and intralesional resection of the cystic lesion. The patient tolerated the procedure without complication. She was returned to the floor in satisfactory condition. She is unable to participate with physical therapy on the day of surgery because of uncontrollable pain. She has pain overnight and complains that the nursing staff refused to give her more pain medicine. She was maintained on IV morphine for 12 hours and then switched to oral oxycodone. Last dose of oxycodone prior to my rounds this morning was approximately 5 hours prior. Physical Exam Vital Signs: Temp Pulse Resp BP Pulse Ox 37.2 C 101 H 16 150/62 H 91 L 12/05/19 00:35 12/05/19 00:35 12/05/19 00:35 12/05/19 00:35 12/05/19 00:35 Intake & Output 12/03/19 12/04/19 12/05/19 06:59 06:59 06:59 Intake Total 2490 Output Total 505 Balance 1985 Weight 78.3 kg General appearance: PRESENT: mild distress Head exam: PRESENT: normocephalic Respiratory exam: PRESENT: unlabored Cardiovascular exam: PRESENT: RRR Vascular exam: PRESENT: normal capillary refill GI/Abdominal exam: PRESENT: soft Rectal exam: PRESENT: deferred Musculoskeletal exam: PRESENT: other - Right lower extremity compressive dressing is clean dry and intact. Brisk capillary refill to the toes. Motor function to great toe flexion extension is intact. Sensory examination is intact to light touch. Skin exam: PRESENT: dry, intact, warm. ABSENT: cyanosis, rash Results Laboratory Results: WBC 9.7 10^3/uL (4.0-10.5) 12/04/19 08:06 RBC 3.64 10^6/uL (3.72-5.28) L 12/04/19 08:06 Hgb 11.6 g/dL (12.0-15.5) L 12/04/19 08:06 Hct 34.8 % (36.0-47.0) L 12/04/19 08:06 MCV 96 fl (80-97) 12/04/19 08:06 MCH 31.9 pg (27.0-33.4) 12/04/19 08:06 MCHC 33.3 g/dL (32.0-36.0) 12/04/19 08:06 RDW 19.6 % (11.5-14.0) H 12/04/19 08:06 Plt Count 382 10^3/uL (150-450) 12/04/19 08:06 Sodium 141.3 mmol/L (137-145) 12/04/19 08:06 Potassium 4.1 mmol/L (3.6-5.0) 12/04/19 08:06 Chloride 111 mmol/L (98-107) H 12/04/19 08:06 Carbon Dioxide 19 mmol/L (22-30) L 12/04/19 08:06 Anion Gap 11 (5-19) 12/04/19 08:06 BUN 32 mg/dL (7-20) H 12/04/19 08:06 Creatinine 1.23 mg/dL (0.52-1.25) 12/04/19 08:06 Est GFR ( Amer) 56 (>60) L 12/04/19 08:06 Est GFR (MDRD) Non-Af 46 (>60) L 12/04/19 08:06 Glucose 76 mg/dL (75-110) 12/04/19 08:06 Calcium 9.2 mg/dL (8.4-10.2) 12/04/19 08:06 Impressions: Chest X-Ray 12/04/19 00:00 IMPRESSION: No acute findings Fluoroscopy 12/04/19 00:00 IMPRESSION: IMAGE(S) OBTAINED DURING PROCEDURE. Knee X-Ray 12/04/19 00:00 IMPRESSION: IMAGE(S) OBTAINED DURING PROCEDURE. Plan Plan of Treatment: Patient be discharged home on a touchdown weightbearing restriction. Follow-up with Dr. Silverman and [facility] for surgery in 2 weeks for staple removal. Stroke Is this a Stroke Patient?: No Stroke Pt being discharged on Anti-thrombolytic therapy?: Yes Acute Heart Failure - Is this a Heart Failure Patient?: No
[2019-12-05] MEDS ORDERED: HYDROXYZINE PAMOATE 50 MG CAPSULE PO PRN (08:42)
[2019-12-05] MEDS: PROPRANOLOL HCL 10 MG TABLET PO SCH (09:32)
[2019-12-05] MEDS: TOPIRAMATE 25 MG TABLET PO SCH (09:33)
[2019-12-05] MEDS: FLUTICASONE/VILANTEROL 100-25 MCG/DOSE IH SCH ×2 (09:40→09:42)
[2019-12-05] MEDS ORDERED: MONTELUKAST SODIUM 10 MG TABLET PO SCH (10:00)
[2019-12-05] MEDS ORDERED: FLUTICASONE NASAL SPRAY 50 MCG/SPRY 120 SPRAY/16 GM NAREB SCH (10:00)
[2019-12-05] MEDS ORDERED: DOCUSATE SODIUM 100 MG CAPSULE PO SCH (10:00)
[2019-12-05] MEDS ORDERED: LAMOTRIGINE 100 MG TABLET PO SCH (10:00)
[2019-12-05] MEDS ORDERED: (PENDING PHARMACY ID) (Atenolol [Tenormin] 12.5 MG) PO SCH (10:00)
[2019-12-05] MEDS ORDERED: ATORVASTATIN CALCIUM 20 MG TABLET PO SCH (10:00)
[2019-12-05] MEDS ORDERED: ASPIRIN 81 MG TABLET, ENT COATED PO SCH (10:00)
[2019-12-05] MEDS ORDERED: FLUOXETINE HCL 20 MG CAPSULE PO SCH (10:00)
[2019-12-05] MEDS ORDERED: AMLODIPINE BESYLATE 5 MG TABLET PO SCH (10:00)
[2019-12-05] MEDS ORDERED: UMECLIDINIUM BROMIDE 62.5 MCG/DOSE IH SCH (10:00)
[2019-12-05] MEDS ORDERED: PANTOPRAZOLE SODIUM 40 MG TABLET.DR PO SCH ×2 (10:00)
[2019-12-05] MEDS ORDERED: FUROSEMIDE 20 MG TABLET PO SCH (10:00)
[2019-12-05 13:28] VITALS: BP 137/73
== END 2019-12-05 15:48 | disposition home health service (06) ==
LOC: OROUT 07:49 → INOR 07:49 → UNDOADMIN 07:49 → EDSTATUS 09:45 → 5 12:47 → INOR 12:47 → UNDODISIN 12-05 15:48 → OROUT 12-05 15:48
PROVIDERS: ATTEND Orthopaedic Surgery
DX: S82.141A Displaced bicondylar fracture of right tibia, initial encounter for closed fracture (principal); X58.XXXA Exposure to other specified factors, initial encounter; M89.9 Disorder of bone, unspecified; I10 Essential (primary) hypertension; J44.9 Chronic obstructive pulmonary disease, unspecified
CPT/HCPCS: 36415; 85027; 80048; 88342 ×2; 88341 ×2; 88305 ×2; 88331 ×2; 88311; 71045; 73560; 93005; 93010; 97530; 97116; 97162; 01392; 27536; 20245; C1713 ×7; J2250; A9270 ×23; J2270; J2370; J2550; J2405; J7120; J2704; J3490; J3010; S0119

== ENCOUNTER 2019-12-06 16:13 | Observation (INO) | payer MEDICARE, MEDICAID ==
[2019-12-06 17:15] LABS: ABSOLUTE EOSINOPHILS # (AUTO) 0.1 10^3/uL (0.0-0.6); ABSOLUTE LYMPHOCYTES (AUTO) 1.8 10^3/uL (0.5-4.7); ABSOLUTE MONOCYTES (AUTO) 0.8 10^3/uL (0.1-1.4); ABSOLUTE NEUT (AUTO) 6.4 10^3/uL (1.7-8.2); BASOPHILS % (AUTO) 0.4 % (0-2); EOSINOPHILS % (AUTO) 1.5 % (0-6); HEMATOCRIT 30.4 % (36.0-47.0); HEMOGLOBIN 10.5 g/dL (12.0-15.5); LYMPHOCYTES % (AUTO) 19.5 % (13-45); MEAN CORPUSCULAR HEMOGLOBIN 33.1 pg (27.0-33.4); MEAN CORPUSCULAR HGB CONC 34.4 g/dL (32.0-36.0); MEAN CORPUSCULAR VOLUME 96 fl (80-97); MONOCYTES % (AUTO) 8.3 % (3-13); PLATELET COUNT 338 10^3/uL (150-450); RED BLOOD COUNT 3.17 10^6/uL (3.72-5.28); RED CELL DISTRIBUTION WIDTH 19.4 % (11.5-14.0); SEGMENTED NEUTROPHILS % (AUTO) 70.3 % (42-78); TOTAL CELLS COUNTED % (AUTO) 100 %; WHITE BLOOD COUNT 9.1 10^3/uL (4.0-10.5)
[2019-12-06 17:40] LABS: ALBUMIN 3.1 g/dL (3.5-5.0); ALKALINE PHOSPHATASE 104 U/L (38-126); ANION GAP 9 (5-19); ASPARTATE AMINO TRANSFERASE 35 U/L (14-36); BILIRUBIN,DIRECT 0.4 mg/dL (0.0-0.4); BILIRUBIN,TOTAL 0.4 mg/dL (0.2-1.3); BLOOD UREA NITROGEN 23 mg/dL (7-20); CALCIUM 8.7 mg/dL (8.4-10.2); CARBON DIOXIDE 23 mmol/L (22-30); CHLORIDE 106 mmol/L (98-107); CREATINE KINASE 287 U/L (30-135); GLUCOSE 92 mg/dL (75-110); POTASSIUM 3.8 mmol/L (3.6-5.0)
[2019-12-06 17:54] LABS: TROPONIN I < 0.012 ng/mL
--- NOTE | 2019-12-06 18:16 | EKG REPORT ---
SEVERITY:- ABNORMAL ECG - SINUS RHYTHM PROLONGED QT INTERVAL : Confirmed by: Miguelito Valenzuela MD 06-Dec-2019 18:15:13
[2019-12-06] MEDS ORDERED: NORMAL SALINE 1000 ML 1,000 ML IV ONE (18:47)
[2019-12-06] MEDS ORDERED: METOCLOPRAMIDE HCL INJ/PF 10 MG/2 ML SDV IV ONE (18:48)
[2019-12-06] MEDS ORDERED: FENTANYL CITRATE INJ/PF 100 MCG/2 ML AMPUL IV ONE ×2 (18:51→23:41)
--- NOTE | 2019-12-06 19:27 | RADIOLOGY REPORT (SQ) ---
EXAM DESCRIPTION: CHEST SINGLE VIEW COMPLETED DATE/TIME: 12/06/2019 7:07 pm REASON FOR STUDY: COPD COMPARISON: 12/04/2019 EXAM PARAMETERS: NUMBER OF VIEWS: One view. TECHNIQUE: Single frontal radiographic view of the chest acquired. RADIATION DOSE: NA LIMITATIONS: None. FINDINGS: LUNGS AND PLEURA: No opacities, masses or pneumothorax. No pleural effusion. MEDIASTINUM AND HILAR STRUCTURES: No masses. Contour normal. HEART AND VASCULAR STRUCTURES: Heart normal in size. Normal vasculature. BONES: No acute findings. HARDWARE: None in the chest. OTHER: No other significant finding. IMPRESSION: NO ACUTE RADIOGRAPHIC FINDING IN THE CHEST. TECHNICAL DOCUMENTATION: JOB ID: [id number] 2010 [employer]- All Rights Reserved Reading location - IP/workstation name: [email or web address]
[2019-12-06 19:41] LABS: URINE AMPHETAMINES SCREEN NEGATIVE; URINE BARBITURATES SCREEN NEGATIVE; URINE COCAINE SCREEN NEGATIVE; URINE MARIJUANA (THC) SCREEN NEGATIVE; URINE METHADONE SCREEN NEGATIVE; URINE PHENCYCLIDINE SCREEN NEGATIVE
[2019-12-06 19:51] LABS: URINE BENZODIAZEPINES SCREEN UNCONFIRMED POSITIVE
--- NOTE | 2019-12-06 20:10 | ER Document Report ---
ED General - General Chief Complaint: Low Blood Pressure Stated Complaint: LOW BLOOD PRESSURE/AMS/PAIN Time Seen by Provider: 12/06/19 18:00 Primary Care Provider: SYED ALMAGUER PA-C [Primary Care Provider] - Follow up as needed TRAVEL OUTSIDE OF THE [place] IN LAST 30 DAYS: No - HPI Notes: This is a 49-year-old female 2 days status post open reduction internal fixation of a right tibial plateau fracture performed by Dr. Batista who is now presenting with complaint of uncontrolled postoperative pain, headache, decreased oral intake and low blood pressure. Patient has a history of bipolar disorder, chronic migraine headaches and chronic pain syndrome. Dr. Batista's discharge summary has been reviewed. There were apparently concern about the patient's use of narcotic medication which had been prescribed preoperatively and there was also concern about her continued request for IV narcotic medications postoperatively. Discharge summary indicates that she was sent out without any additional prescription for narcotics. Patient says since she has been home her discomfort has been uncontrolled and she is not able to eat or drink because she is "hurting all over" specifically complaining of postop pain in the right lower extremity as well as persistent chronic headache. Review of old records indicates this patient has a history of COPD and she continues to smoke. She also has chronic renal insufficiency. She has been previously treated for hypotension and dehydration with acute kidney injury as an inpatient here. - Related Data Allergies/Adverse Reactions: Penicillins Allergy (Verified 12/06/19 16:39) Home Medications: no changes from inpt status on 3/5 Past Medical History - General Information source: Patient - Social History Smoking Status: Current Every Day Smoker Chew tobacco use (# tins/day): No Frequency of alcohol use: None Drug Abuse: None Family History: Reviewed & Not Pertinent Patient has suicidal ideation: No Patient has homicidal ideation: No Pulmonary Medical History: Reports: Hx COPD Neurological Medical History: Reports: Hx Migraine Renal/ Medical History: Reports: Hx Renal Insufficiency GI Medical History: Reports: Hx Gastritis Musculoskeletal Medical History: Reports Hx Arthritis Psychiatric Medical History: Reports: Hx Depression Past Surgical History: Reports: Hx Orthopedic Surgery - rt tib fx plates Review of Systems - Review of Systems Notes: Constitutional: Negative for fever. HENT: Negative for sore throat. Eyes: Negative for visual changes. Cardiovascular: Negative for chest pain. Respiratory: Negative for shortness of breath. Gastrointestinal: Negative for abdominal pain, vomiting or diarrhea. Genitourinary: Negative for dysuria. Musculoskeletal: As per HPI. Skin: Negative for rash. Neurological: As per HPI. 10 point ROS negative except as marked above and in HPI. Physical Exam - Vital signs Vitals: Temp Resp 97.5 F 14 12/06/19 16:30 12/06/19 16:30 - Notes Notes: GENERAL: Female patient appearing somewhat older than stated age noted to have surgical dressing on right lower extremity. SKIN: Good turgor no rashes. HEAD: Normocephalic atraumatic. EYES: PERRLA. EOMI. Conjunctivae and sclerae clear. EARS: CANALS AND TMS CLEAR. NOSE: CLEAR. MOUTH: Moist mucosa. Edentulous. No stridor or edema. No drooling. NECK: Supple. No masses or thyromegaly. No adenopathy. Carotids 2+ without bruits. No JVD. BACK: Symmetrical without tenderness. CHEST: Respirations unlabored. Breath sounds clear and symmetrical. HEART: Regular rhythm. No murmur gallop or rub. ABDOMEN: Soft nontender without masses, organomegaly or rebound. Bowel sounds normally active. No bruits. GENITALIA: Deferred. EXTREMITIES: Surgical dressing right lower extremity. No edema. No calf tenderness. Cap refill less than 1.5 seconds. Dorsalis pedis and posterior tibial pulses 2+ and symmetrical. NEUROLOGICAL: GCS 15. Alert and oriented x3. Mildly slurred speech. Cranial nerves II through XII intact. Sensorimotor and cerebellar normal. Normal tone. PSYCHIATRIC: Flat affect. Course - Re-evaluation Re-evalutation: 12/06/19 20:10 Patient appears to have slight bump in her creatinine which is probably consistent with dehydration from diminished oral intake. Blood pressures improved with 1 L of normal saline. Her EKG shows no acute changes. Her troponin is normal. She had no complaint of any chest pain. She does have a mildly elevated d-dimer 0.77. I am going to get a VQ scan to rule out PE. I have given her 1 dose of fentanyl here for pain. Anticipate she will need medical admission for rehydration and close observation of her renal status. 12/07/19 02:08 VQ scan was low probability. Case reviewed with hospitalist on-call Dr. Boyle and patient will be admitted by him. - Vital Signs Vital signs: Temp Pulse Resp BP Pulse Ox 98.3 F 15 107/69 99 12/07/19 00:00 12/07/19 02:01 12/07/19 02:00 12/07/19 02:01 - Laboratory Result Diagrams: 12/06/19 17:00 12/06/19 17:00 Laboratory results interpreted by me: 12/06/19 12/06/19 12/06/19 17:00 17:00 17:00 RBC 3.17 L Hgb 10.5 L Hct 30.4 L RDW 19.4 H D-Dimer BUN 23 H Creatinine 1.98 H Est GFR ( Amer) 32 L Est GFR (MDRD) Non-Af 27 L Creatine Kinase 287 H CK-MB (CK-2) 10.80 H Total Protein 6.0 L Albumin 3.1 L 12/06/19 17:00 RBC Hgb Hct RDW D-Dimer 0.77 H BUN Creatinine Est GFR ( Amer) Est GFR (MDRD) Non-Af Creatine Kinase CK-MB (CK-2) Total Protein Albumin Discharge - Discharge Clinical Impression: KYLE (acute kidney injury), Bipolar depression, Dehydration Condition: Fair Disposition: ADMITTED INPATIENT Admitting Provider: Tamar (Hospitalist) Unit Admitted: Medical Floor Referrals: SYED ALMAGUER PA-C [Primary Care Provider] - Follow up as needed
--- NOTE | 2019-12-06 23:16 | RADIOLOGY REPORT (SQ) ---
Ventilation perfusion lung scan: 05/23/2019 9:29 PM Clinical indication: 49-year old patient with hypotension, recent surgery. Comparison: Chest radiograph performed 12/06/2019. Technique: Posterior ventilation images of the chest were obtained following the inhalation of 29.6 mCi of technetium 99m DTPA gas. Following, intravenous injection of 5.1 mCi of technetium 99m labeled MAA, planar images of the chest were obtained in multiple projections. Findings: There is homogeneous radiotracer distribution in the lungs on both perfusion and ventilation images. No segmental or subsegmental defects are seen to suggest a pulmonary artery embolism. No significant retention of radiotracer is seen on the ventilation images. Impression: Low probability ventilation/perfusion lung scan.
[2019-12-06] MEDS: NORMAL SALINE 1000 ML 1,000 ML IV PRN (23:37)
[2019-12-07] MEDS: NORMAL SALINE 1000 ML 1,000 ML IV PRN ×4 (00:38→18:09)
[2019-12-07] MEDS ORDERED: ACETAMINOPHEN 325 MG TABLET PO PRN (02:21)
[2019-12-07] MEDS ORDERED: ACETAMINOPHEN 650 MG SUPP.RECT PR PRN (02:21)
[2019-12-07] MEDS ORDERED: MAGNESIUM HYDROXIDE SUSP 30 ML UDCUP PO PRN (02:21)
[2019-12-07] MEDS ORDERED: PROMETHAZINE HCL INJ 25 MG/1 ML VIAL IV PRN (02:21)
--- NOTE | 2019-12-07 02:53 | PDOC H&P ---
History of Present Illness Admission Date/PCP: SYED ALMAGUER PA-C Patient complains of: Right leg pain History of Present Illness: GIN HADDAD is a 49 year old female with a very complex medical history was just discharged on December 05, 2019 after an open reduction with internal fixation of right medial tibial plateau fracture. The patient states that she is been in significant pain. She reports not eating and drinking very much. She presents to the facility for assessment. It is found that her serum creatinine and BUN are increased. The acute kidney injury is most likely related to poor intake over the last 24 hours. She was referred to the hospital service for admission for IV fluids. The patient has low blood pressure but review of previous a dmission shows that it is similar to blood pressures in the past. Past Medical History Pulmonary Medical History: Reports: Chronic Obstructive Pulmonary Disease (COPD) Neurological Medical History: Reports: Migraine Musculoskeltal Medical History: Reports: Arthritis Psychiatric Medical History: Reports: Depression, General Anxiety Disorder Past Surgical History Past Surgical History: Reports: Orthopedic Surgery - rt tib fx plates Social History Information Source: Patient, [facility] Records Lives with: Family Smoking Status: Current Every Day Smoker Electronic Cigarette use?: No Frequency of Alcohol Use: None Hx Recreational Drug Use: No Drugs: None Hx Prescription Drug Abuse: No - Advance Directive Resuscitation Status: Do Not Resuscitate Family History Family History: Reviewed & Not Pertinent Parental Family History Reviewed: Yes Children Family History Reviewed: Yes Sibling(s) Family History Reviewed.: Yes Medication/Allergy Home Medications: Albuterol Sulfate [Proair HFA Inhalation Aerosol 8.5 gm MDI] 2 puff IH ASDIR PRN 10/18/19 Albuterol Sulfate [Ventolin 0.083% Neb 2.5 mg/3 mL Ampul] 1 vial NEB RTQ4HP PRN 10/18/19 Atorvastatin Calcium [Lipitor 20 mg Tablet] 20 mg PO DAILY 10/18/19 Clonazepam [Klonopin] 0.5 mg PO Q8HP PRN 10/18/19 Fluticasone Propionate [Flonase Nasal [place] 50 Mcg/[place] 16 gm] 1 sprays NAREB DAILY 10/18/19 Furosemide [Lasix 20 mg Tablet] 20 mg PO DAILY 10/18/19 Hydroxyzine HCl [Atarax 50 mg Tablet] 50 mg PO QIDP PRN 10/18/19 Lurasidone HCl [Latuda 40 mg Tablet] 40 mg PO QPM 10/18/19 Montelukast Sodium [Singulair 10 mg Tablet] 10 mg PO DAILY 10/18/19 Omeprazole 40 mg PO DAILY 10/18/19 Propranolol HCl [Inderal 10 mg Tablet] 10 mg PO Q12 10/18/19 Quetiapine Fumarate [Seroquel 100 mg Tablet] 50 mg PO DAILYP PRN 10/18/19 Quetiapine Fumarate [Seroquel 100 mg Tablet] 100 mg PO HSP PRN 10/18/19 Sumatriptan Succinate [Imitrex 25 mg Tablet] 25 mg PO DAILYP PRN 10/18/19 Topiramate [Topamax] 50 mg PO Q12 10/18/19 Umeclidinium [place] [Incruse Ellipta] 1 puff IH DAILY 10/18/19 Amlodipine Besylate [Norvasc 5 mg Tablet] 5 mg PO DAILY 12/04/19 Aspirin [Ecotrin 81 mg EC Tablet] 81 mg PO DAILY 12/04/19 Atenolol [Tenormin] 12.5 mg PO DAILY 12/04/19 Budesonide/Formoterol Fumarate [Symbicort Hfa 80-4.5 Mcg Inhaler 6.9 gm] 2 puff IH Q12 12/04/19 Butalbital/Aspirin/Caffeine [Bdnzaf-Dwjcwzf-Lbnzi 50-325-40] 1 each PO Q4HP PRN MDD 6 TABS 12/04/19 Docusate Sodium [Colace 100 mg Capsule] 100 mg PO DAILY 12/04/19 Fluoxetine HCl [Prozac] 80 mg PO DAILY 12/04/19 Gabapentin 800 mg PO Q8 12/04/19 Hydrocodone/Acetaminophen [[place]im 5-325 mg Tablet] 1 tab PO Q6HP PRN 12/04/19 Lamotrigine 150 mg PO DAILY 12/04/19 Allergies/Adverse Reactions: Penicillins Allergy (Verified 12/06/19 16:39) Review of Systems Constitutional: PRESENT: anorexia, weakness. ABSENT: chills, headache(s) Eyes: ABSENT: visual disturbances Ears: ABSENT: hearing changes Nose, Mouth, and Throat: ABSENT: headache(s), sore throat Cardiovascular: ABSENT: chest pain, edema, palpitations Respiratory: ABSENT: cough, dyspnea, sputum Gastrointestinal: ABSENT: abdominal pain, constipation, diarrhea, nausea, vomiting Genitourinary: PRESENT: difficulty urinating, other - Dark urine Musculoskeletal: PRESENT: other - Right leg pain Integumentary: ABSENT: diaphoresis, erythema, rash Neurological: ABSENT: memory loss, syncope, tremor(s), vertigo Psychiatric: PRESENT: anxiety, depression Physical Exam Vital Signs: Temp Pulse Resp BP Pulse Ox 97.9 F 15 107/69 99 12/07/19 02:40 12/07/19 02:01 12/07/19 02:00 12/07/19 02:01 Intake & Output 12/05/19 12/06/19 12/07/19 06:59 06:59 06:59 Intake Total 2000 Output Total 150 Balance 1850 Weight 84.9 kg General appearance: PRESENT: cooperative, mild distress, well-developed Head exam: PRESENT: atraumatic, normocephalic Eye exam: PRESENT: conjunctiva pink, EOMI, PERRLA. ABSENT: scleral icterus Ear exam: PRESENT: normal external ear exam. ABSENT: bleeding, drainage Mouth exam: PRESENT: dry mucosa, tongue midline Neck exam: ABSENT: carotid bruit, JVD, lymphadenopathy Respiratory exam: PRESENT: clear to auscultation mansi, symmetrical, unlabored. ABSENT: accessory muscle use, rales, rhonchi, tachypnea, wheezes Cardiovascular exam: PRESENT: RRR, +S1, +S2. ABSENT: diastolic murmur, systolic murmur GI/Abdominal exam: PRESENT: normal bowel sounds, soft. ABSENT: distended, mass, tenderness Rectal exam: PRESENT: deferred Gentrourinary exam: ABSENT: indwelling catheter Extremities exam: PRESENT: other - Right leg dressed with Kerlix and Covan from recent surgery.. ABSENT: pedal edema Musculoskeletal exam: PRESENT: ambulatory - Allowed touchdown weightbearing Neurological exam: PRESENT: alert, awake, oriented to person, oriented to place, oriented to time, oriented to situation, CN II-XII grossly intact Psychiatric exam: PRESENT: appropriate affect - Affect reflects her current clinical state. ABSENT: agitated, anxious Focused psych exam: ABSENT: delusional, restlessness Skin exam: PRESENT: dry, normal color, warm. ABSENT: rash Results Laboratory Results: 12/06/19 17:00 12/06/19 17:00 12/06/19 12/06/19 12/06/19 17:00 17:00 17:00 WBC 9.1 RBC 3.17 L Hgb 10.5 L Hct 30.4 L MCV 96 MCH 33.1 MCHC 34.4 RDW 19.4 H Plt Count 338 Seg Neutrophils % 70.3 Sodium 138.3 Potassium 3.8 Chloride 106 Carbon Dioxide 23 Anion Gap 9 BUN 23 H Creatinine 1.98 H Est GFR ( Amer) 32 L Glucose 92 Calcium 8.7 Total Bilirubin 0.4 AST 35 Alkaline Phosphatase 104 Total Protein 6.0 L Albumin 3.1 L Serum HCG, Qual NEGATIVE 12/06/19 12/06/19 12/06/19 17:00 17:00 19:40 Creatine Kinase 287 H CK-MB (CK-2) 10.80 H Troponin I < 0.012 < 0.012 Impressions: Chest X-Ray 12/06/19 18:48 IMPRESSION: NO ACUTE RADIOGRAPHIC FINDING IN THE CHEST. Assessment and Plan - Diagnosis (1) KYLE (acute kidney injury) Is this a current diagnosis for this admission?: Yes Plan: 12/07/2019 The patient reports poor intake of food and liquids since discharge from the hospital 36 hours ago. She states it was due to the pain. We will hydrate the patient and this should correct the acute kidney injury. (2) Bipolar depression Is this a current diagnosis for this admission?: Yes Plan: 12/07/2019 Long history of mental illness. Continue current medication regimen. I have decreased the doses of some of the medications and held some of the medications and lieu of the acute kidney injury and polypharmacy. (3) Hypotension Qualifiers: Hypotension type: unspecified hypotension type Qualified Code(s): I95.9 - Hypotension, unspecified Is this a current diagnosis for this admission?: Yes Plan: 12/07/2019 The hypotension could be due to the poor volume intake. However, if you look at her previous hospitalizations her blood pressure is never high. This may be her baseline. Because of this I have not given her amlodipine. We will monitor the patient on telemetry and monitor serial vital signs. If her blood pressure becomes elevated we can restart the amlodipine. Her blood pressure state is most likely due to the many [employer] depressant medications that she is on. (4) Tobacco abuse Is this a current diagnosis for this admission?: Yes Plan: 12/07/2019 Nicotine patch was ordered. (5) Chronic obstructive pulmonary disease Qualifiers: COPD type: unspecified COPD Qualified Code(s): J44.9 - Chronic obstructive pulmonary disease, unspecified Is this a current diagnosis for this admission?: Yes Plan: 12/07/2019 We will utilize inhaler therapy and as needed nebulizer treatments. The patient is adequately oxygenating on room air. - Time Time Spent with patient: 35 or more minutes Medications reviewed and adjusted accordingly: Yes Anticipated discharge: Home, Home with Homehealth Within: within 48 hours
[2019-12-07] MEDS: FENTANYL CITRATE INJ/PF 100 MCG/2 ML AMPUL IV PRN ×4 (03:23→21:23)
[2019-12-07] MEDS ORDERED: QUETIAPINE FUMARATE 25 MG TABLET PO ONE (03:26)
[2019-12-07] MEDS ORDERED: TEMAZEPAM 15 MG CAPSULE PO ONE (03:26)
[2019-12-07] MEDS: HEPARIN SOD (PORCINE) 5,000 UNIT/ML 1 ML VIAL SUBCUT SCH ×3 (05:46→21:16)
[2019-12-07] MEDS: PANTOPRAZOLE SODIUM 40 MG TABLET.DR PO SCH (05:47)
[2019-12-07] MEDS: GABAPENTIN 300 MG CAPSULE PO SCH ×3 (05:47→21:19)
[2019-12-07] MEDS: CLONAZEPAM 1 MG TABLET PO PRN ×2 (09:51→18:09)
[2019-12-07] MEDS: DOCUSATE SODIUM 100 MG CAPSULE PO SCH ×2 (09:51→18:11)
[2019-12-07] MEDS: FLUOXETINE HCL 20 MG CAPSULE PO SCH (09:52)
[2019-12-07] MEDS: TOPIRAMATE 25 MG TABLET PO SCH ×2 (09:52→21:18)
[2019-12-07] MEDS: IPRATROPIUM/ALBUTEROL 0.5-2.5 MG/3 ML AMPUL NEB PRN (10:10)
[2019-12-07] MEDS: FLUTICASONE NASAL SPRAY 50 MCG/SPRY 120 SPRAY/16 GM NASL SCH ×2 (10:54→21:16)
[2019-12-07] MEDS: FLUTICASONE/UMECLIDIN/VILANTER 100-62.5-25 MCG/DOSE IH SCH (10:54)
[2019-12-07] MEDS: LAMOTRIGINE 25 MG TAB.CHEW PO SCH (12:21)
[2019-12-07] MEDS ORDERED: CAFFEINE PO PRN (13:55)
[2019-12-07] MEDS ORDERED: SUMATRIPTAN SUCCINATE 25 MG TABLET PO PRN (13:55)
[2019-12-07] MEDS ORDERED: (PENDING PHARMACY ID) (Hydroxyzine Hcl [Atarax 50 Mg Tablet] 100 MG) PO PRN (13:55)
[2019-12-07] MEDS ORDERED: (PENDING PHARMACY ID) (Clonazepam [Klonopin] 0.5 MG) PO PRN (13:55)
[2019-12-07] MEDS ORDERED: ASPIRIN PO PRN (13:55)
[2019-12-07] MEDS ORDERED: [UNRECOGNIZED DRUG - OTHER] PO PRN (13:55)
[2019-12-07] MEDS ORDERED: BUTALBITAL PO PRN (13:55)
[2019-12-07] MEDS ORDERED: (PENDING PHARMACY ID) (Gabapentin [Gabapentin] 800 MG) PO SCH (14:00)
[2019-12-07] MEDS ORDERED: CLONAZEPAM 1 MG TABLET PO PRN (14:54)
[2019-12-07] MEDS ORDERED: HYDROXYZINE HCL 10 MG TABLET PO PRN (14:55)
[2019-12-07] MEDS: BUTALB/ACETAMINOPHEN/CAFFEINE 1 TAB EACH PO PRN (16:24)
[2019-12-07] MEDS ORDERED: HYDROXYZINE HCL 10 MG TABLET ONE (16:47)
[2019-12-07] MEDS ORDERED: LURASIDONE HCL 40 MG TABLET PO SCH (18:00)
[2019-12-07] MEDS: GABAPENTIN 400 MG CAPSULE PO SCH (21:18)
[2019-12-07] MEDS: TOPIRAMATE 100 MG TABLET PO SCH (21:18)
[2019-12-07] MEDS: PROPRANOLOL HCL 10 MG TABLET PO SCH (21:19)
[2019-12-07] MEDS ORDERED: ATORVASTATIN CALCIUM 20 MG TABLET PO SCH (22:00)
[2019-12-08] MEDS: NORMAL SALINE 1000 ML 1,000 ML IV PRN ×2 (00:39→07:55)
[2019-12-08] MEDS: FENTANYL CITRATE INJ/PF 100 MCG/2 ML AMPUL IV PRN ×2 (01:27→12:01)
[2019-12-08] MEDS: GABAPENTIN 400 MG CAPSULE PO SCH ×2 (05:39→15:14)
[2019-12-08] MEDS: PANTOPRAZOLE SODIUM 40 MG TABLET.DR PO SCH (05:39)
[2019-12-08] MEDS: CLONAZEPAM 1 MG TABLET PO PRN ×2 (05:39→15:14)
[2019-12-08 05:40] LABS: ANION GAP 8 (5-19); BLOOD UREA NITROGEN 9 mg/dL (7-20); CALCIUM 8.6 mg/dL (8.4-10.2); CARBON DIOXIDE 20 mmol/L (22-30); CHLORIDE 112 mmol/L (98-107); GLUCOSE 91 mg/dL (75-110); POTASSIUM 3.8 mmol/L (3.6-5.0)
[2019-12-08] MEDS: GABAPENTIN 300 MG CAPSULE PO SCH ×2 (05:40→15:15)
[2019-12-08] MEDS: HEPARIN SOD (PORCINE) 5,000 UNIT/ML 1 ML VIAL SUBCUT SCH ×2 (05:43→15:15)
[2019-12-08] MEDS: IPRATROPIUM/ALBUTEROL 0.5-2.5 MG/3 ML AMPUL NEB PRN (07:41)
[2019-12-08] MEDS ORDERED: FLUOXETINE HCL 20 MG CAPSULE PO SCH (10:00)
[2019-12-08] MEDS ORDERED: UMECLIDINIUM BROMIDE 62.5 MCG/DOSE IH SCH (10:00)
[2019-12-08] MEDS ORDERED: MONTELUKAST SODIUM 10 MG TABLET PO SCH (10:00)
[2019-12-08] MEDS ORDERED: FUROSEMIDE 20 MG TABLET PO SCH (10:00)
[2019-12-08] MEDS ORDERED: AMLODIPINE BESYLATE 5 MG TABLET PO SCH (10:00)
[2019-12-08] MEDS ORDERED: FLUTICASONE/VILANTEROL 100-25 MCG/DOSE IH SCH (10:00)
[2019-12-08] MEDS ORDERED: ASPIRIN 81 MG TABLET, ENT COATED PO SCH (10:00)
[2019-12-08] MEDS ORDERED: (PENDING PHARMACY ID) (Atenolol [Tenormin] 12.5 MG) PO SCH (10:00)
[2019-12-08] MEDS: DOCUSATE SODIUM 100 MG CAPSULE PO SCH (10:14)
[2019-12-08] MEDS: TOPIRAMATE 25 MG TABLET PO SCH (10:15)
[2019-12-08] MEDS: FLUOXETINE HCL 20 MG CAPSULE PO SCH (10:15)
[2019-12-08] MEDS: TOPIRAMATE 100 MG TABLET PO SCH (10:16)
[2019-12-08] MEDS: LAMOTRIGINE 25 MG TAB.CHEW PO SCH (10:16)
[2019-12-08] MEDS: FLUTICASONE/UMECLIDIN/VILANTER 100-62.5-25 MCG/DOSE IH SCH (10:17)
[2019-12-08] MEDS: FLUTICASONE NASAL SPRAY 50 MCG/SPRY 120 SPRAY/16 GM NASL SCH (10:21)
[2019-12-08] MEDS: PROPRANOLOL HCL 10 MG TABLET PO SCH (10:21)
[2019-12-08] MEDS: BUTALB/ACETAMINOPHEN/CAFFEINE 1 TAB EACH PO PRN (12:21)
[2019-12-08 16:37] VITALS: BP 125/69
--- NOTE | 2019-12-08 18:20 | PDOC DISCHARGE SUMMARY ---
Impression - Admit/DC Date/PCP Admission Date/Primary Care Provider: 12/07/19 02:26 SYED ALMAGUER PA-C Discharge Date: 12/08/19 - Additional Information Resuscitation Status: Do Not Resuscitate Discharge Diet: As Tolerated Discharge Activity: Activity As Tolerated Referrals: SYED ALMAGUER PA-C [Primary Care Provider] - Follow up as needed Home Medications: Albuterol Sulfate [Proair HFA Inhalation Aerosol 8.5 gm MDI] 2 puff IH ASDIR PRN 10/18/19 Albuterol Sulfate [Ventolin 0.083% Neb 2.5 mg/3 mL Ampul] 1 vial NEB RTQ4HP PRN 10/18/19 Atorvastatin Calcium [Lipitor 20 mg Tablet] 20 mg PO DAILY 10/18/19 Clonazepam [Klonopin] 0.5 mg PO Q8HP PRN 10/18/19 Fluticasone Propionate [Flonase Nasal Delanson 50 Mcg/Delanson 16 gm] 1 sprays NAREB DAILY 10/18/19 Furosemide [Lasix 20 mg Tablet] 20 mg PO DAILY 10/18/19 Hydroxyzine HCl [Atarax 50 mg Tablet] 100 mg PO QIDP PRN 10/18/19 Lurasidone HCl [Latuda 40 mg Tablet] 40 mg PO QPM 10/18/19 Montelukast Sodium [Singulair 10 mg Tablet] 10 mg PO DAILY 10/18/19 Omeprazole 40 mg PO DAILY 10/18/19 Propranolol HCl [Inderal 10 mg Tablet] 10 mg PO Q12 10/18/19 Quetiapine Fumarate [Seroquel 100 mg Tablet] 50 mg PO DAILYP PRN 10/18/19 Quetiapine Fumarate [Seroquel 100 mg Tablet] 100 mg PO HSP PRN 10/18/19 Sumatriptan Succinate [Imitrex 25 mg Tablet] 25 mg PO DAILYP PRN 10/18/19 Topiramate [Topamax] 50 mg PO Q12 10/18/19 Umeclidinium Crumrod [Incruse Ellipta] 1 puff IH DAILY 10/18/19 Amlodipine Besylate [Norvasc 5 mg Tablet] 5 mg PO DAILY 12/04/19 Aspirin [Ecotrin 81 mg EC Tablet] 81 mg PO DAILY 12/04/19 Atenolol [Tenormin] 12.5 mg PO DAILY 12/04/19 Budesonide/Formoterol Fumarate [Symbicort HFA 80-4.5 mcg Inhaler 6.9 gm] 2 puff IH Q12 12/04/19 Butalbital/Aspirin/Caffeine [Vthlia-Dkcmysb-Lanwg 50-325-40] 1 each PO Q4HP PRN MDD 6 TABS 12/04/19 Docusate Sodium [Colace 100 mg Capsule] 100 mg PO DAILY 12/04/19 Fluoxetine HCl [Prozac] 80 mg PO DAILY 12/04/19 Gabapentin 800 mg PO Q8 12/04/19 Hydrocodone/Acetaminophen [Freedom 5-325 mg Tablet] 1 tab PO Q6HP PRN 12/04/19 Lamotrigine 150 mg PO DAILY 12/04/19 History of Present Illiness History of Present Illness: GIN HADDAD is a 49 year old female with a very complex medical history was just discharged on December 05, 2019 after an open reduction with internal fixation of right medial tibial plateau fracture. The patient states that she is been in significant pain. She reports not eating and drinking very much. She presents to the facility for assessment. It is found that her serum creatinine and BUN are increased. The acute kidney injury is most likely related to poor intake over the last 24 hours. She was referred to the hospital service for admission for IV fluids. The patient has low blood pressure but review of previous admission shows that it is similar to blood pressures in the past. Hospital Course Hospital Course: (1) KYLE (acute kidney injury) 12/07/2019 The patient reports poor intake of food and liquids since discharge from the hospital 36 hours ago. She states it was due to the pain. We will hydrate the patient and this should correct the acute kidney injury. (2) Bipolar depression 12/07/2019 Long history of mental illness. Continue current medication regimen. I have decreased the doses of some of the medications and held some of the medications and lieu of the acute kidney injury and polypharmacy. (3) Hypotension 12/07/2019 The hypotension could be due to the poor volume intake. However, if you look at her previous hospitalizations her blood pressure is never high. This may be her baseline. Because of this I have not given her amlodipine. We will monitor the patient on telemetry and monitor serial vital signs. If her blood pressure becomes elevated we can restart the amlodipine. 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 (4) Tobacco abuse 12/07/2019 Nicotine patch was ordered. (5) Chronic obstructive pulmonary disease 12/07/2019 We will utilize inhaler therapy and as needed nebulizer treatments. The patient is adequately oxygenating on room air. Physical Exam Vital Signs: Temp Pulse Resp BP Pulse Ox 98.6 F 89 20 125/69 96 12/08/19 16:32 12/08/19 16:32 12/08/19 16:32 12/08/19 16:32 12/08/19 16:32 Intake & Output 12/07/19 12/08/19 12/09/19 05:59 06:59 06:59 Intake Total 1180 Output Total Balance 1180 Weight General appearance: PRESENT: no acute distress, well-developed, well-nourished Head exam: PRESENT: atraumatic, normocephalic Respiratory exam: PRESENT: clear to auscultation mansi. ABSENT: rales, rhonchi, wheezes GI/Abdominal exam: PRESENT: normal bowel sounds, soft. ABSENT: distended, guarding, mass, organolmegaly, rebound, tenderness Neurological exam: PRESENT: alert, awake, oriented to person, oriented to place, oriented to time, oriented to situation, CN II-XII grossly intact. ABSENT: motor sensory deficit Results Laboratory Results: WBC 9.1 10^3/uL (4.0-10.5) 12/06/19 17:00 RBC 3.17 10^6/uL (3.72-5.28) L 12/06/19 17:00 Hgb 10.5 g/dL (12.0-15.5) L 12/06/19 17:00 Hct 30.4 % (36.0-47.0) L 12/06/19 17:00 MCV 96 fl (80-97) 12/06/19 17:00 MCH 33.1 pg (27.0-33.4) 12/06/19 17:00 MCHC 34.4 g/dL (32.0-36.0) 12/06/19 17:00 RDW 19.4 % (11.5-14.0) H 12/06/19 17:00 Plt Count 338 10^3/uL (150-450) 12/06/19 17:00 Lymph % (Auto) 19.5 % (13-45) 12/06/19 17:00 Prairie % (Auto) 8.3 % (3-13) 12/06/19 17:00 Eos % (Auto) 1.5 % (0-6) 12/06/19 17:00 Baso % (Auto) 0.4 % (0-2) 12/06/19 17:00 Absolute Neuts (auto) 6.4 10^3/uL (1.7-8.2) 12/06/19 17:00 Absolute Lymphs (auto) 1.8 10^3/uL (0.5-4.7) 12/06/19 17:00 Absolute Monos (auto) 0.8 10^3/uL (0.1-1.4) 12/06/19 17:00 Absolute Eos (auto) 0.1 10^3/uL (0.0-0.6) 12/06/19 17:00 Absolute Basos (auto) 0.0 10^3/uL (0.0-0.2) 12/06/19 17:00 Seg Neutrophils % 70.3 % (42-78) 12/06/19 17:00 D-Dimer 0.77 ug/mL (0.00-0.50) H 12/06/19 17:00 Sodium 139.6 mmol/L (137-145) 12/08/19 04:42 Potassium 3.8 mmol/L (3.6-5.0) 12/08/19 04:42 Chloride 112 mmol/L (98-107) H 12/08/19 04:42 Carbon Dioxide 20 mmol/L (22-30) L 12/08/19 04:42 Anion Gap 8 (5-19) 12/08/19 04:42 BUN 9 mg/dL (7-20) 12/08/19 04:42 Creatinine 0.89 mg/dL (0.52-1.25) 12/08/19 04:42 Est GFR ( Amer) > 60 (>60) 12/08/19 04:42 Est GFR (MDRD) Non-Af > 60 (>60) 12/08/19 04:42 Glucose 91 mg/dL (75-110) 12/08/19 04:42 Calcium 8.6 mg/dL (8.4-10.2) 12/08/19 04:42 Magnesium 1.9 mg/dL (1.6-2.3) 12/08/19 04:42 Total Bilirubin 0.4 mg/dL (0.2-1.3) 12/06/19 17:00 Direct Bilirubin 0.4 mg/dL (0.0-0.4) 12/06/19 17:00 Neonat Total Bilirubin Not Reportable 12/06/19 17:00 Neonat Direct Bilirubin Not Reportable 12/06/19 17:00 Neonat Indirect Bili Not Reportable 12/06/19 17:00 AST 35 U/L (14-36) 12/06/19 17:00 ALT 34 U/L (<35) 12/06/19 17:00 Alkaline Phosphatase 104 U/L (38-126) 12/06/19 17:00 Creatine Kinase 287 U/L (30-135) H 12/06/19 17:00 CK-MB (CK-2) 10.80 ng/mL (<4.55) H 12/06/19 17:00 Troponin I < 0.012 ng/mL 12/06/19 19:40 Total Protein 6.0 g/dL (6.3-8.2) L 12/06/19 17:00 Albumin 3.1 g/dL (3.5-5.0) L 12/06/19 17:00 Serum HCG, Qual NEGATIVE (NEGATIVE) 12/06/19 17:00 Urine Opiates Screen UNCONFIRMED POSITIVE 12/06/19 18:45 Urine Methadone Screen NEGATIVE 12/06/19 18:45 Ur Barbiturates Screen NEGATIVE 12/06/19 18:45 Ur Phencyclidine Scrn NEGATIVE 12/06/19 18:45 Ur Amphetamines Screen NEGATIVE 12/06/19 18:45 U Benzodiazepines Scrn UNCONFIRMED POSITIVE 12/06/19 18:45 Urine Cocaine Screen NEGATIVE 12/06/19 18:45 U Marijuana (THC) Screen NEGATIVE 12/06/19 18:45 12/06/19 12/06/19 17:00 19:40 CK-MB (CK-2) 10.80 H Troponin I < 0.012 < 0.012 Impressions: Chest X-Ray 12/06/19 18:48 IMPRESSION: NO ACUTE RADIOGRAPHIC FINDING IN THE CHEST. Stroke Is this a Stroke Patient?: No Acute Heart Failure - Is this a Heart Failure Patient?: No
== END 2019-12-08 17:15 | disposition home or self-care (01) ==
LOC: ER 16:13 → INTOOBSV 12-07 02:26 → EH 12-07 02:26 → 5 12-07 03:50
PROVIDERS: ADMIT Hospitalist; ATTEND Hospitalist
DX: N17.9 Acute kidney failure, unspecified (principal); F31.9 Bipolar disorder, unspecified; I95.9 Hypotension, unspecified; J44.9 Chronic obstructive pulmonary disease, unspecified; G89.18 Other acute postprocedural pain; G89.4 Chronic pain syndrome; F17.200 Nicotine dependence, unspecified, uncomplicated; F41.9 Anxiety disorder, unspecified; E86.0 Dehydration; R47.81 Slurred speech; G43.909 Migraine, unspecified, not intractable, without status migrainosus; R40.2412 Glasgow coma scale score 13-15, at arrival to emergency department; M19.90 Unspecified osteoarthritis, unspecified site; Z66 Do not resuscitate; Z79.899 Other long term (current) drug therapy
CPT/HCPCS: 93005; 96376; 99285; 96361; 96374; 96375; 36415 ×2; 82553; 82550; 83735; 84703; 85025; 80048; 80053; 84484; 80307; 85379; 71045; 78582; 93010; 94640 ×2; 97163; G0378 ×3; A9540; A9567; A9270 ×31; J1644 ×2; J3010 ×3; J2765; J2550; J3490 ×4; J7030 ×3; Q9969; J7620

== ENCOUNTER 2020-01-11 17:27 | Emergency (ER) | payer MEDICARE, MEDICAID ==
--- NOTE | 2020-01-11 17:49 | ER Document Report ---
ED Fall - General Chief Complaint: Fall Stated Complaint: FALL Time Seen by Provider: 01/11/20 17:48 Primary Care Provider: SYED ALMAGUER PA-C [Primary Care Provider] - Follow up as needed Mode of Arrival: Medic Information source: Patient Notes: 49-year-old woman presents to the emergency department with a history of fall, apparently, she has had a right total knee replacement surgery and is using a walker. She states that she fell today possibly 4 PM. She is taking physical therapy and has some limitations on her ambulation. Walker only and limited weightbearing on the right side. She is 1 month post surgery. States she has osteoarthritis and left knee. She was seen at [facility] last night, CT scan of the head, neck, x-rays of the right upper extremity, shoulder were performed and all negative. She was discharged home with B[place] and Naprosyn. Apparently, she has taken all of the B[place] and is now requesting more pain medication. She denies any new injury associated with the fall today. TRAVEL OUTSIDE OF THE [place] IN LAST 30 DAYS: No - Related data Allergies/Adverse Reactions: Penicillins Allergy (Verified 01/11/20 17:39) Past Medical History - Social History Smoking Status: Unknown if Ever Smoked Family History: Reviewed & Not Pertinent Pulmonary Medical History: Reports: Hx COPD Neurological Medical History: Reports: Hx Migraine Renal/ Medical History: Reports: Hx Renal Insufficiency GI Medical History: Reports: Hx Gastritis Musculoskeletal Medical History: Reports Hx Arthritis Psychiatric Medical History: Reports: Hx Depression Past Surgical History: Reports: Hx Orthopedic Surgery - rt tib fx plates Review of Systems - Review of Systems Notes: Constitutional: Negative for fever. HENT: Negative for sore throat. Eyes: Negative for visual changes. Cardiovascular: Negative for chest pain. Respiratory: Negative for shortness of breath. Gastrointestinal: Negative for abdominal pain, vomiting or diarrhea. Genitourinary: Negative for dysuria. Musculoskeletal: + Right shoulder pain, + right neck pain, + right knee pain Skin: Negative for rash. Neurological: Negative for headaches, weakness or numbness. 10 point ROS negative except as marked above and in HPI. Physical Exam - Vital signs Vitals: Temp Pulse Resp BP Pulse Ox 98.2 F 71 18 120/76 99 01/11/20 17:50 01/11/20 17:50 01/11/20 17:50 01/11/20 17:50 01/11/20 17:50 - Notes Notes: PHYSICAL EXAMINATION: Physical Exam: General: Well-nourished well-developed 49-year-old woman in no acute distress HEENT: Mild swelling under the right eye, pupils equal round and reactive to light, MM moist,nares clear, oropharynx clear, airway patent Neck: supple, no adenopathy, no masses. Good range of motion, tenderness in the right paracervical muscle group. Lungs: clear, no wheezing, no rales no rhonchi CVS: Regular rate and rhythm no murmur gallop or rub Abdomen: Soft, active, nontender, no masses, no hepatosplenomegaly Ext: Sling right upper extremity, tenderness at the shoulder and lateral upper arm. No edema, clubbing or cyanosis. Tenderness right knee Neuro: Alert and responsive, moving all 4 extremities on command, cranial nerves intact, no focal findings Skin: Intact no open lesions, no rash PSYCH: Normal mood, normal affect. Course - Re-evaluation Re-evalutation: 01/11/20 18:08 Patient states that she did not feel she needed to come to the hospital her daughter insisted that she come. She has taken the last of the Braintree which she was given last night. She has a history of asthma/COPD last breathing treatment was 2 PM today. She reiterates that she does not feel she has any new injury associated with the fall today there was no new head injury or loss of consciousness. She is requesting pain medication. 01/11/20 18:09 - Vital Signs Vital signs: Temp Pulse Resp BP Pulse Ox 98.2 F 82 16 128/70 H 100 01/11/20 18:39 01/11/20 18:39 01/11/20 18:39 01/11/20 18:39 01/11/20 18:39 Discharge - Discharge Clinical Impression: Knee pain Qualifiers: Chronicity: chronic Laterality: right Qualified Code(s): M25.561 - Pain in right knee Chronic obstructive pulmonary disease Qualifiers: COPD type: unspecified COPD Qualified Code(s): J44.9 - Chronic obstructive pulmonary disease, unspecified Fall Qualifiers: Encounter type: initial encounter Qualified Code(s): W19.XXXA - Unspecified fall, initial encounter Condition: Good Disposition: HOME, SELF-CARE Additional Instructions: You were seen in the emergency department today with a history of falling. It is apparent that you are having a difficult time using the walker and maintaining your balance. It would be imperative for you and the physical therapist to continue to work to improve your ambulation skills. You may continue the Naprosyn along with Tylenol for pain, you were given a shot of Toradol in the emergency department, however, we cannot continue your opiate medication use from the emergency department. I suggest that you contact your primary physician or orthopedist if further narcotic medication is needed. HOME CARE INSTRUCTIONS & INFORMATION: Thank you for choosing us for your medical needs. We hope you're satisfied with the care you received. After you leave, you must properly care for your problem and, at the same time, observe its progress. Any condition can change. Some illnesses can change rapidly over hours or days. If your condition worsens, return to the Emergency Department or see your physician promptly. ABOUT YOUR X-RAYS AND EKG'S: If you had an EKG or X-rays taken, they have been read by the Emergency Physician. The X-rays and EKG's will also be read by a Radiologist or Admissions Gate Attendant within 24 hours. If discrepancies are noted, you will be notified by telephone. Please be certain the ED has a correct telephone number & address where you can be reached. Also, realize that some fractures or abnormalities do not show up on initial X-rays. If your symptoms continue, see your physician. ABOUT YOUR LABORATORY TEST: If you had laboratory tests, the results have been reviewed by the Emergency Physician. Some test results (for example cultures) may not be available for several days. You will be contacted if any test result shows you need additional treatment. Please be certain the ED has a correct telephone number and address where you can be reached. ABOUT YOUR MEDICATIONS: You will receive instructions on how to take your medicine on the prescription label you receive. Additional information may be provided by the Pharmacy. If you have questions afterwards, call the ED for clarification or further instructions. Some prescribed medications may cause drowsiness. Do not perform tasks such as driving a car or operating machinery without consulting your Pharmacist. If you feel you need a refill of pain medication, your condition will need re-evaluation. Please do not call for a refill of any medication. ABOUT YOUR SIGNATURE: Signature of this document acknowledges to followin. Understanding that you received emergency treatment and that you may be released before al medical problems are known or treated. Please be certain the ED has a correct phone number & address where you can be reached. 2. Acknowledgement that you will arrange for follow-up care as recommended. 3. Authorization for the Emergency Physician to provide information to your follow-up Physician in order to maximize your care. AT ANY TIME, IF YOUR SYMPTOMS CHANGE SIGNIFICANTLY OR WORSEN OR YOU DEVELOP NEW SYMPTOMS, RETURN TO THE EMERGENCY DEPARTMENT IMMEDIATELY FOR RE-EVALUATION. OUR GOAL IS TO PROVIDE EXCELLENT MEDICAL CARE! WE HOPE THAT WE HAVE MET YOUR EXPECTATIONS DURING YOUR EMERGENCY DEPARTMENT VISIT AND THAT YOU FEEL YOU HAVE RECEIVED EXCELLENT CARE! Referrals: SYED ALMAGUER PA-C [Primary Care Provider] - Follow up as needed
[2020-01-11] MEDS ORDERED: KETOROLAC TROMETHAMINE 60 MG/2 ML SDV IM ONE (18:10)
[2020-01-11 18:41] VITALS: BP 128/70
--- NOTE | 2020-01-14 15:58 | Left Against Medical Advice ---
Against Medical Advice Admission Date/Time: Primary Care Provider: SYED ALMAGUER PA-C Patient admitted on 01/14/2020 at 0058 hours, for altered mental status secondary to drug overdose Date of Patient Emigration: 01/14/20 - Diagnosis: (1) Drug-seeking behavior Is this a current diagnosis for this admission?: Yes (2) KYLE (acute kidney injury) Is this a current diagnosis for this admission?: Yes (3) Bipolar depression Is this a current diagnosis for this admission?: Yes (4) Drug overdose, multiple drugs Is this a current diagnosis for this admission?: Yes (5) Encephalopathy acute Is this a current diagnosis for this admission?: Yes (6) Fall Is this a current diagnosis for this admission?: Yes (7) Multiple falls Is this a current diagnosis for this admission?: Yes (8) Tobacco abuse Is this a current diagnosis for this admission?: Yes - Summary: Summary: Please see Admission and Progress Notes as well. GIN HADDAD is a 49 F, who LEFT AGAINST MEDICAL ADVICE. The Patient was admitted on 01/14/2020 just after midnight, for apparent drug overdose, altered mental status. Had just been in our emergency room 3 days ago stating she was out of her hydrocodone. The day prior she had been in another emergency room after she had reportedly fallen, and was given Gueydan. She reported to our ER that she was out of her Gueydan. I am not sure if she received any on 10 January he was seen here at [facility]. Night she had presented to the emergency room with altered mental status after reportedly taking a one-month supply of her methocarbamol, Seroquel, Vistaril, Klonopin. Morning on rounds I saw the patient and gave an order for her to be given Ultram, gabapentin, as well as her Prozac. Later this morning and early afternoon her nurse called and stated that the patient was requesting medicine for anxiety as well as more pain medicine. Her I would not do that based on her prior history. Patient threatened to sign out AMA and I went up to see the patient. Over that I would be glad to consult psychiatry and what ever they felt was indicated I would take into consideration when prescribing future medications. States that she was already on medications and already being seen by psychiatry. Patient signed out AMA Patient also told her nurse not to divulge any of this information to her daughter who was going to pick her up from the hospital.
== END 2020-01-11 18:39 | disposition home or self-care (01) ==
LOC: ER 17:27
DX: Z04.3 Encounter for examination and observation following other accident (principal); M25.561 Pain in right knee; G89.29 Other chronic pain; J44.9 Chronic obstructive pulmonary disease, unspecified; M54.2 Cervicalgia; M25.511 Pain in right shoulder; R22.0 Localized swelling, mass and lump, head; Z88.0 Allergy status to penicillin; Z96.651 Presence of right artificial knee joint
CPT/HCPCS: 99283; 96372; J1885

== ENCOUNTER 2020-01-13 19:29 | Inpatient (IN) | payer MEDICARE, MEDICAID ==
--- NOTE | 2020-01-13 20:02 | ER Document Report ---
Entered by FLIP GAMINO SCRIBE 01/13/202000 Acting as scribe for:SHABANA JACOB DO ED Substance Abuse / Acc. OD - General Chief Complaint: Drug Abuse Stated Complaint: SUBSTANCE ABUSE Time Seen by Provider: 01/13/20 20:00 Primary Care Provider: SYED ALMAGUER PA-C [Primary Care Provider] - Follow up as needed Mode of Arrival: Medic Information source: Patient, Emergency Med Personnel Notes: This 49 year old female patient brought in by EMS presents to the ED today confused and lethargic with complaints of a suspected drug overdose of her own medications. Patient cannot report any history surrounding this event, stating that "I think I took too many pills... a little bit of everything." She denies suicidal ideation. Patient's daughter called EMS to report that the patient was possibly abusing her prescription drugs. Daughter states that the prescriptions were just filled at the beginning of the month and the bottles are already empty. Empty bottles include Methocarbamol 500mg tablets filled on count, Quetiapine 100mg tablets filled 12/22, count, Hydroxyzine 50mg tablets filled count with 13 pills remaining, and Clonazepam 0.5mg tablets filled count. Patient has issues with continued pain and has had visits to [facility] and here, with the last visit here for a fall x2 days ago. Patient had surgery on 12/04/19 for a tibial plateau fracture to the E. TRAVEL OUTSIDE OF THE [place] IN LAST 30 DAYS: No - Related Data Allergies/Adverse Reactions: Penicillins Allergy (Verified 01/11/20 17:39) Past Medical History - Social History Smoking Status: Current Every Day Smoker Cigarette use (# per day): Yes Chew tobacco use (# tins/day): No Smoking Education Provided: No Lives with: Family - Daughter Family History: Reviewed & Not Pertinent Patient has suicidal ideation: No Patient has homicidal ideation: No Pulmonary Medical History: Reports: Hx COPD Neurological Medical History: Reports: Hx Migraine Renal/ Medical History: Reports: Hx Renal Insufficiency GI Medical History: Reports: Hx Gastritis Musculoskeletal Medical History: Reports Hx Arthritis Psychiatric Medical History: Reports: Hx Depression Past Surgical History: Reports: Hx Orthopedic Surgery - rt tib fx plates Review of Systems - Review of Systems -: Yes ROS unobtainable due to patient's medical condition Physical Exam - Vital signs Vitals: Temp Resp BP Pulse Ox 97.6 F 20 104/51 L 98 01/13/20 19:30 01/13/20 19:30 01/13/20 19:30 01/13/20 19:30 - General General appearance: Lethargic, Other - Chronically ill appearing. Looks much older than stated age. - HEENT Head: Normocephalic, Atraumatic Eyes: Normal Extraocular movements intact: Yes Pupils: Dilated - 6 mm and sluggish Mucous membranes: Dry Neck: Supple - Respiratory Respiratory status: No respiratory distress Chest status: Nontender Breath sounds: Normal Chest palpation: Normal - Cardiovascular Rhythm: Regular Heart sounds: Normal auscultation Murmur: No Friction rub: No Gallop: None auscultated - Abdominal Inspection: Obese Distension: No distension Bowel sounds: Normal Tenderness: Nontender - Abdomen soft Organomegaly: No organomegaly - Back Back: Normal, Nontender - Extremities General upper extremity: Normal inspection General lower extremity: No: Edema Knee: Other - Well healed scar near tibia of RLE - Neurological Neuro grossly intact: Yes [place] Coma Scale Eye Opening: Spontaneous [place]ola Coma Scale Verbal: Oriented Viola Coma Scale Motor: Obeys Commands [place] Coma Scale Total: 15 - Psychological Associated symptoms: Other - Sleepy, poor judgement. Denies suicidal ideation - Skin Skin Temperature: Warm Skin Moisture: Dry Skin Color: Normal Course - Re-evaluation Re-evalutation: 01/14/20 00:24 MDM 49 year old female underwent tibial plateau fx surgery on right tibia last month early in the month here. She has been dealing with increasing right leg pain since including visits to [facility] ED over the weekend and here 2 days ago for a fall. She had a mixed overdose today that was not intentional. She is awake and alert and a bit confused when I see here. Crystaloid fluid is given for resusitaiton and her QTC is a bit prolonged which was treated with IVF, NAHCO3 and Magnesium. The qtc improved. I discussed with Dr. Rutherford who has graciously agreed to see and evlauate for admission. - Vital Signs Vital signs: Temp Pulse Resp BP Pulse Ox 97.6 F 11 L 93/48 L 94 01/13/20 19:30 01/13/20 23:30 01/13/20 23:30 01/13/20 23:30 - Laboratory Result Diagrams: 01/13/20 20:00 01/13/20 20:00 Laboratory results interpreted by me: 01/13/20 01/13/20 01/13/20 20:00 20:00 23:16 WBC 20.4 H RBC 3.11 L Hgb 10.1 L Hct 30.4 L MCV 98 H RDW 17.9 H Abs Neuts (Manual) 15.9 H Chloride 112 H Carbon Dioxide 19 L BUN 33 H Creatinine 1.71 H Est GFR ( Amer) 38 L Est GFR (MDRD) Non-Af 32 L Lactic Acid < 0.5 L Direct Bilirubin 0.5 H Total Protein 5.9 L Albumin 3.1 L Acetaminophen < 10 L - Diagnostic Test Radiology reviewed: Reports reviewed - EKG Interpretation by Me EKG shows normal: Sinus rhythm - NSR NL Jemison 70 BPM repolarization abnormality no st elevation or depression my interpretation Rate: Normal Rhythm: NSR Discharge - Discharge Clinical Impression: Encephalopathy acute, KYLE (acute kidney injury) Drug overdose, multiple drugs Qualifiers: Encounter type: initial encounter Injury intent: accidental or unintentional Qualified Code(s): T50.911A - Poisoning by multiple unspecified drugs, medicaments and biological substances, accidental (unintentional), initial encounter Anemia Qualifiers: Anemia type: unspecified type Qualified Code(s): D64.9 - Anemia, unspecified Knee pain Qualifiers: Chronicity: acute Laterality: right Qualified Code(s): M25.561 - Pain in right knee Condition: Good Disposition: ADMITTED INPATIENT Admitting Provider: Krish (Hospitalist) Unit Admitted: IMCU Referrals: SYED ALMAGUER PA-C [Primary Care Provider] - Follow up as needed I personally performed the services described in the documentation, reviewed and edited the documentation which was dictated to the scribe in my presence, and it accurately records my words and actions.
[2020-01-13] MEDS ORDERED: NORMAL SALINE 1000 ML 1,000 ML IV ONE ×2 (20:15→21:02)
[2020-01-13 20:43] LABS: HEMATOCRIT 30.4 % (36.0-47.0); HEMOGLOBIN 10.1 g/dL (12.0-15.5); MEAN CORPUSCULAR HEMOGLOBIN 32.4 pg (27.0-33.4); MEAN CORPUSCULAR HGB CONC 33.2 g/dL (32.0-36.0); MEAN CORPUSCULAR VOLUME 98 fl (80-97); PLATELET COUNT 339 10^3/uL (150-450); RED BLOOD COUNT 3.11 10^6/uL (3.72-5.28); RED CELL DISTRIBUTION WIDTH 17.9 % (11.5-14.0); WHITE BLOOD COUNT 20.4 10^3/uL (4.0-10.5)
[2020-01-13 20:47] LABS: ALBUMIN 3.1 g/dL (3.5-5.0); ALKALINE PHOSPHATASE 121 U/L (38-126); ANION GAP 7 (5-19); ASPARTATE AMINO TRANSFERASE 26 U/L (14-36); BILIRUBIN,DIRECT 0.5 mg/dL (0.0-0.4); BILIRUBIN,TOTAL 0.6 mg/dL (0.2-1.3); BLOOD UREA NITROGEN 33 mg/dL (7-20); CALCIUM 8.5 mg/dL (8.4-10.2); CARBON DIOXIDE 19 mmol/L (22-30); CHLORIDE 112 mmol/L (98-107); CREATINE KINASE 38 U/L (30-135); GLUCOSE 86 mg/dL (75-110); POTASSIUM 4.1 mmol/L (3.6-5.0); TOTAL PROTEIN 5.9 g/dL (6.3-8.2)
[2020-01-13] MEDS ORDERED: SODIUM BICARBONATE 8.4% INJ 50 MEQ/50 ML DISP.SYRIN IV ONE (20:48)
[2020-01-13] MEDS ORDERED: MAGNESIUM SULFATE/D5W 1 GM/100 ML RTUPB IV ONE (20:48)
[2020-01-13 20:50] LABS: ACETAMINOPHEN < 10 ug/mL (10-30); ALCOHOL < 10 mg/dL (NONE DETECTED)
[2020-01-13 21:08] LABS: ABSOLUTE LYMPHOCYTES# (MANUAL) 2.9 10^3/uL (0.5-4.7); ABSOLUTE MONOCYTES # (MANUAL) 1.2 10^3/uL (0.1-1.4); BASOPHILS % (MANUAL) 0 % (0-2); EOSINOPHILS % (MANUAL) 2 % (0-6); LYMPHOCYTES % (MANUAL) 14 % (13-45); MONOCYTES % (MANUAL) 6 % (3-13); SEGMENTED NEUTROPHILS % (MAN) 78 % (42-78); TOTAL CELLS COUNTED 100
[2020-01-13 21:09] LABS: ANISOCYTOSIS 1+
[2020-01-13 21:15] LABS: BURR CELLS SLIGHT; SCHISTOCYTES SLIGHT
[2020-01-13 21:15] LABS: APPEARANCE,URINE CLEAR; BILIRUBIN,URINE NEGATIVE (NEGATIVE); COLOR,URINE YELLOW; GLUCOSE, URINE NEGATIVE (NEGATIVE); KETONES,URINE NEGATIVE (NEGATIVE); LEUKOCYTE ESTERASE,URINE NEGATIVE (NEGATIVE); NITRITE,URINE NEGATIVE (NEGATIVE); PROTEIN,URINE NEGATIVE (NEGATIVE); URINE SPECIFIC GRAVITY 1.021; UROBILINOGEN,URINE NEGATIVE mg/dL (<2.0)
[2020-01-13 21:16] LABS: PLATELET COMMENT ADEQUATE
[2020-01-13 21:29] LABS: URINE AMPHETAMINES SCREEN NEGATIVE; URINE BENZODIAZEPINES SCREEN NEGATIVE; URINE COCAINE SCREEN NEGATIVE; URINE MARIJUANA (THC) SCREEN NEGATIVE; URINE METHADONE SCREEN NEGATIVE; URINE PHENCYCLIDINE SCREEN NEGATIVE
[2020-01-13 21:31] LABS: URINE BARBITURATES SCREEN UNCONFIRMED POSITIVE
--- NOTE | 2020-01-13 23:07 | RADIOLOGY REPORT (SQ) ---
EXAM DESCRIPTION: CT HEAD WITHOUT IV CONTRAST COMPLETED DATE/TME: 01/13/2020 10: 20 p.m. CLINICAL HISTORY: aloc COMPARISON: None Available. TECHNIQUE: Contiguous axial images of the brain were obtained without the administration of intravenous contrast. This exam was performed according to our departmental dose-optimization program, which includes automated exposure control, adjustment of the mA and/or kV according to patient size and/or use of iterative reconstruction technique. FINDINGS: There is no acute intracranial hemorrhage or mass effect. Ventricular system is within normal limits. There is adequate bernabe-white matter differentiation. There is no skull fracture. Air-fluid levels within the sphenoid sinus could be secondary to acute sinusitis changes. IMPRESSION: No acute intracranial abnormalities. Air-fluid levels within the sphenoid sinuses could represent acute sinusitis changes.
[2020-01-14] MEDS ORDERED: MAG HYDROX/AL HYDROX/SIMETH SUSP 30 ML UDCUP PO PRN (01:24)
[2020-01-14] MEDS ORDERED: LEVALBUTEROL HCL NEB 0.63 MG/3 ML AMPUL NEB PRN (01:24)
[2020-01-14] MEDS ORDERED: MAGNESIUM HYDROXIDE SUSP 30 ML UDCUP PO PRN (01:24)
[2020-01-14] MEDS ORDERED: PROMETHAZINE HCL INJ 25 MG/1 ML VIAL IV PRN (01:24)
[2020-01-14] MEDS ORDERED: NICOTINE 21 MG/24 HR PATCH.TD24 TD PRN (01:44)
[2020-01-14] MEDS ORDERED: LORAZEPAM INJ 2 MG/1 ML VIAL IV PRN (01:45)
[2020-01-14 03:04] LABS: CREATINE KINASE MB 0.41 ng/mL (<4.55)
[2020-01-14 03:07] LABS: TROPONIN I < 0.012 ng/mL
[2020-01-14] MEDS: RINGERS SOLUTION,LACTATED 1,000 ML IV PRN ×2 (03:30→06:57)
[2020-01-14 04:02] LABS: ARTERIAL BLOOD BASE EXCESS -5.3 mmol/L; ARTERIAL BLOOD H2CO3 1.07 mmol/L (1.05-1.35); ARTERIAL BLOOD HCO3 19.6 mmol/L (20-24); ARTERIAL BLOOD O2 SATURATION 94.7 % (94-98); ARTERIAL BLOOD PCO2 35.6 mmHg (35-45); ARTERIAL BLOOD PH 7.36 (7.35-7.45); ARTERIAL BLOOD PO2 74.9 mmHg (80-100); ARTERIAL BLOOD TOTAL CO2 20.7 mmol/L (21-25)
[2020-01-14 04:08] LABS: ARTERIAL BLOOD FIO2 ROOM AIR
--- NOTE | 2020-01-14 05:02 | PDOC H&P ---
History of Present Illness Admission Date/PCP: 01/14/20 00:31 SYED ALMAGUER PA-C Patient complains of: Altered mental status History of Present Illness: GIN HADDAD is a 49 year old female who presented to the emergency room via EMS with an acute overdose induced encephalopathy/delirium. Patient is unable to respond adequately to questions to provide reliable historical information. Family told EMS that the patient was abusing her prescription medications having already taken a full 1 month supply of her medications filled on 01/08/2020 including methocarbamol 500 mg #30, Seroquel 100 mg #45, hydroxyzine 50 mg #90 (-13 tablet still in bottle) and clonazepam 0.5 mg #90 filled on 12/26/2019. Family also indicated the patient has had numerous falls recently which they think are related to her prescription drug abuse. In the emergency room patient was found to have an acute kidney injury with creatinine of 1.79 and was also noted to have a prolonged QTc interval consistent with her medication ingestion. Poison control recommends the patient be observed on telemetry for at least 6 hours before issuing medical clearance for psychiatric evaluation. Patient was subsequently admitted to the [facility] for further evaluation treatment. Past Medical History Past Medical History: Due to patient's altered mental status historical data for past medical, surgical, social and family history are obtained from the best available reliable source. Cardiac Medical History: Denies: Coronary Artery Disease, Hyperlipidema, Hypertension Pulmonary Medical History: Reports: Chronic Obstructive Pulmonary Disease (COPD) Denies: Asthma EENT Medical History: Denies: Cataracts, Ears - Hearing aids Neurological Medical History: Reports: Migraine Denies: Hemorrhagic CVA, Ischemic CVA, Seizures Endocrine Medical History: Denies: Diabetes Mellitus Type 1, Diabetes Mellitus Type 2, Hyperthyroidism, Hypothyroidism Renal/ Medical History: Denies: Chronic Kidney Disease, Nephrolithiasis Malignancy Medical History: Reports: None GI Medical History: Denies: Cirrhosis, Hepatitis Musculoskeltal Medical History: Reports: Arthritis Denies: Gout Skin Medical History: Denies: Eczema, Psoriasis Psychiatric Medical History: Reports: Bipolar Disorder, Depression, Tobacco D ependency Denies: Alcohol Dependency, Substance Abuse Traumatic Medical History: Reports: Other - Recent right tibial plateau fracture due to fall Hematology: Denies: Anemia, Bleeding Tendencies Infectious Medical History: Reports: None Past Surgical History Past Surgical History: Due to patient's altered mental status historical data for past medical, surgical, social and family history are obtained from the best available reliable source. Past Surgical History: Reports: Orthopedic Surgery - rt tib fx plates Social History Information Source: Emergency Med Personnel, [facility] [place] [place] Records Lives with: Family - Daughter Smoking Status: Current Every Day Smoker Electronic Cigarette use?: No Frequency of Alcohol Use: None Hx Recreational Drug Use: No Drugs: None Hx Prescription Drug Abuse: Yes - See HPI Past Social History Note: Due to patient's altered mental status historical data for past medical, surgical, social and family history are obtained from the best available reliable source. - Advance Directive Resuscitation Status: Full Code Surrogate healthcare decision maker:: Remedios Frye Family History Family History: Other - No reliable source for family medical history was found. Family History: Due to patient's altered mental status historical data for past medical, surgical, social and family history are obtained from the best available reliable source. Parental Family History Reviewed: No Children Family History Reviewed: No Sibling(s) Family History Reviewed.: No Medication/Allergy Home Medications: Albuterol Sulfate [Proair HFA Inhalation Aerosol 8.5 gm MDI] 2 puff IH ASDIR PRN 10/18/19 Albuterol Sulfate [Ventolin 0.083% Neb 2.5 mg/3 mL Ampul] 1 vial NEB RTQ4HP PRN 10/18/19 Atorvastatin Calcium [Lipitor 20 mg Tablet] 20 mg PO DAILY 10/18/19 Clonazepam [Klonopin] 0.5 mg PO Q8HP PRN 10/18/19 Fluticasone Propionate [Flonase Nasal Fontana 50 Mcg/Fontana 16 gm] 1 sprays NAREB DAILY 10/18/19 Furosemide [Lasix 20 mg Tablet] 20 mg PO DAILY 10/18/19 Hydroxyzine HCl [Atarax 50 mg Tablet] 100 mg PO QIDP PRN 10/18/19 Lurasidone HCl [Latuda 40 mg Tablet] 40 mg PO QPM 10/18/19 Montelukast Sodium [Singulair 10 mg Tablet] 10 mg PO DAILY 10/18/19 Omeprazole 40 mg PO DAILY 10/18/19 Propranolol HCl [Inderal 10 mg Tablet] 10 mg PO Q12 10/18/19 Quetiapine Fumarate [Seroquel 100 mg Tablet] 50 mg PO DAILYP PRN 10/18/19 Quetiapine Fumarate [Seroquel 100 mg Tablet] 100 mg PO HSP PRN 10/18/19 Sumatriptan Succinate [Imitrex 25 mg Tablet] 25 mg PO DAILYP PRN 10/18/19 Topiramate [Topamax] 50 mg PO Q12 10/18/19 Umeclidinium [place] [Incruse Ellipta] 1 puff IH DAILY 10/18/19 Amlodipine Besylate [Norvasc 5 mg Tablet] 5 mg PO DAILY 12/04/19 Aspirin [Ecotrin 81 mg EC Tablet] 81 mg PO DAILY 12/04/19 Atenolol [Tenormin] 12.5 mg PO DAILY 12/04/19 Budesonide/Formoterol Fumarate [Symbicort HFA 80-4.5 mcg Inhaler 6.9 gm] 2 puff IH Q12 12/04/19 Butalbital/Aspirin/Caffeine [Clryrk-Eddvxgp-Tshrr 50-325-40] 1 each PO Q4HP PRN MDD 6 TABS 12/04/19 Docusate Sodium [Colace 100 mg Capsule] 100 mg PO DAILY 12/04/19 Fluoxetine HCl [Prozac] 80 mg PO DAILY 12/04/19 Gabapentin 800 mg PO Q8 12/04/19 Hydrocodone/Acetaminophen [[place] 5-325 mg Tablet] 1 tab PO Q6HP PRN 12/04/19 Lamotrigine 150 mg PO DAILY 12/04/19 Allergies/Adverse Reactions: Penicillins Allergy (Verified 01/11/20 17:39) Review of Systems ROS unobtainable: Due to mental status Physical Exam Vital Signs: Temp Pulse Resp BP Pulse Ox 97.6 F 15 121/73 95 01/13/20 19:30 01/14/20 00:45 01/14/20 00:45 01/14/20 00:45 Intake & Output 01/12/20 01/13/20 01/14/20 23:59 23:59 23:59 Intake Total 1100 1000 Balance 1100 1000 Weight 76.1 kg General appearance: PRESENT: no acute distress, other - Confused Head exam: PRESENT: atraumatic, normocephalic Eye exam: ABSENT: conjunctival injection, scleral icterus Ear exam: PRESENT: normal external ear exam. ABSENT: bleeding, drainage Mouth exam: PRESENT: dry mucosa, neck supple Neck exam: ABSENT: thyromegaly, tracheal deviation Respiratory exam: PRESENT: clear to auscultation mansi, symmetrical, unlabored Cardiovascular exam: PRESENT: RRR. ABSENT: clicks, gallop, rubs Pulses: PRESENT: normal radial pulses, normal dorsalis pedis pul Vascular exam: PRESENT: normal capillary refill. ABSENT: pallor GI/Abdominal exam: PRESENT: normal bowel sounds, soft Rectal exam: PRESENT: deferred Extremities exam: ABSENT: joint swelling, pedal edema Musculoskeletal exam: ABSENT: deformity, dislocation Neurological exam: PRESENT: CN II-XII grossly intact - To very limited exam. ABSENT: altered - Confused Psychiatric exam: PRESENT: depressed, other - Delirious/stuporous with confusion Skin exam: PRESENT: dry, intact, warm. ABSENT: jaundice, rash, urticaria Results Laboratory Results: 01/13/20 20:00 01/13/20 20:00 01/13/20 01/13/20 01/13/20 20:00 20:00 20:58 WBC 20.4 H RBC 3.11 L Hgb 10.1 L Hct 30.4 L MCV 98 H MCH 32.4 MCHC 33.2 RDW 17.9 H Plt Count 339 Seg Neutrophils % Not Reportable VBG pH VBG pCO2 VBG HCO3 VBG Base Excess Sodium 138.1 Potassium 4.1 Chloride 112 H Carbon Dioxide 19 L Anion Gap 7 BUN 33 H Creatinine 1.71 H Est GFR ( Amer) 38 L Glucose 86 Lactic Acid Calcium 8.5 Magnesium 1.8 Total Bilirubin 0.6 AST 26 Alkaline Phosphatase 121 Total Protein 5.9 L Albumin 3.1 L Urine Color YELLOW Urine Appearance CLEAR Urine pH 5.0 Ur Specific [place] 1.021 Urine Protein NEGATIVE Urine Glucose (UA) NEGATIVE Urine Ketones NEGATIVE Urine Blood NEGATIVE Urine Nitrite NEGATIVE Ur Leukocyte Esterase NEGATIVE Urine WBC (Auto) 1 Urine RBC (Auto) 0 01/13/20 01/13/20 21:08 23:16 WBC RBC Hgb Hct MCV MCH MCHC RDW Plt Count Seg Neutrophils % VBG pH Cancelled VBG pCO2 Cancelled VBG HCO3 Cancelled VBG Base Excess Cancelled Sodium Potassium Chloride Carbon Dioxide Anion Gap BUN Creatinine Est GFR ( Amer) Glucose Lactic Acid < 0.5 L Calcium Magnesium Total Bilirubin AST Alkaline Phosphatase Total Protein Albumin Urine Color Urine Appearance Urine pH Ur Specific [place] Urine Protein Urine Glucose (UA) Urine Ketones Urine Blood Urine Nitrite Ur Leukocyte Esterase Urine WBC (Auto) Urine RBC (Auto) 01/13/20 20:00 Creatine Kinase 38 Impressions: Head CT 01/13/20 22:12 acute sinusitis changes. IMPRESSION: No acute intracranial abnormalities. Air-fluid levels within the sphenoid sinuses could represent acute sinusitis changes. Assessment and Plan - Diagnosis (1) Drug overdose, multiple drugs Qualifiers: Encounter type: initial encounter Injury intent: accidental or unintentional Qualified Code(s): T50.911A - Poisoning by multiple unspecified drugs, medicaments and biological substances, accidental (unintentional), initial encounter Is this a current diagnosis for this admission?: Yes (2) Encephalopathy acute Is this a current diagnosis for this admission?: Yes (3) KYLE (acute kidney injury) Is this a current diagnosis for this admission?: Yes (4) Bipolar depression Is this a current diagnosis for this admission?: Yes (5) Tobacco abuse Is this a current diagnosis for this admission?: Yes (6) Multiple falls Is this a current diagnosis for this admission?: Yes - Plan Summary Summary: Patient is admitted to [facility] where she will receive routine supportive and symptomatic cares. She will be treated with high-volume IV fluid and close monitoring of her lecture lites and renal status. A psychiatric consultation will be obtained as soon as the patient is lucid. CBCs, metabolic profiles and magnesium levels will be obtained as needed. Patient received Ativan 1 mg IV every 4 hours as needed for anxiety or restlessness. She will be treated with a cardiac diet. A PT consult will be obtained for evaluation of the patient's ambulatory capacity and ways to reduce her falls. - Time Time Spent with patient: Less than 15 minutes Medications reviewed and adjusted accordingly: Yes Anticipated discharge: Other - Inpatient Certification Based on my medical assessment, after consideration of the patient's comorbidities, presenting symptoms, or acuity I expect that the services needed warrant INPATIENT care.: Yes I certify that my determination is in accordance with my understanding of Medicare's requirements for reasonable and necessary INPATIENT services [42 CFR 412.3e].: Yes Medical Necessity: Need Close Monitoring Due to Risk of Patient Decompensation, Need For IV Fluids, Need For Continuous Telemetry Monitoring, Need for Neurological Checks, Risk of Complication if Not Cared For in Hospital
[2020-01-14] MEDS: HEPARIN SOD (PORCINE) 5,000 UNIT/ML 1 ML VIAL SUBCUT SCH ×2 (05:25→13:04)
[2020-01-14] MEDS ORDERED: PANTOPRAZOLE SODIUM 40 MG TABLET.DR PO SCH (06:00)
--- NOTE | 2020-01-14 08:13 | EKG REPORT ---
SEVERITY:- ABNORMAL ECG - SINUS RHYTHM FIRST DEGREE AV BLOCK BORDERLINE R WAVE PROGRESSION, ANTERIOR LEADS BORDERLINE T ABNORMALITIES, ANTERIOR LEADS PROLONGED QT INTERVAL : Confirmed by: Miguelito Valenzuela MD 14-Jan-2020 08:13:18
--- NOTE | 2020-01-14 08:15 | EKG REPORT ---
SEVERITY:- ABNORMAL ECG - SINUS RHYTHM FIRST DEGREE AV BLOCK NONSPECIFIC T ABNORMALITIES, LATERAL LEADS PROLONGED QT INTERVAL (MAKE SURE NOT DUE TO MEDICATIONS INDUCED) : Confirmed by: Miguelito Valenzuela MD 14-Jan-2020 08:15:39
--- NOTE | 2020-01-14 08:19 | EKG REPORT ---
SEVERITY:- ABNORMAL ECG - SINUS RHYTHM PROLONGED QT INTERVAL (ALERT!!!) : Confirmed by: Miguelito Valenzuela MD 14-Jan-2020 08:18:52
[2020-01-14 08:48] LABS: TROPONIN I < 0.012 ng/mL
[2020-01-14] MEDS ORDERED: ONDANSETRON 4 MG TAB.RAPDIS PO PRN (08:59)
[2020-01-14] MEDS: TRAMADOL HCL 50 MG TABLET PO PRN ×2 (09:47→13:51)
[2020-01-14] MEDS ORDERED: DOCUSATE SODIUM 100 MG CAPSULE PO SCH (10:00)
[2020-01-14] MEDS ORDERED: FLUOXETINE HCL 20 MG CAPSULE PO SCH (10:00)
[2020-01-14 13:02] VITALS: BP 106/59
[2020-01-14] MEDS ORDERED: GABAPENTIN 400 MG CAPSULE PO SCH (14:00)
[2020-01-14 14:35] LABS: CREATINE KINASE MB 0.29 ng/mL (<4.55)
[2020-01-14 14:53] LABS: TROPONIN I < 0.012 ng/mL
--- NOTE | 2020-01-14 18:20 | PSYCHOLOGICAL NOTE ---
Psych Note - Psych Note Date seen by psych provider: 01/14/20 Psych Note: Reason for Consult: Substance abuse/misuse of medications Patient AMA prior to being seen by the behavioral health team.
--- NOTE | 2020-01-15 15:25 | Left Against Medical Advice ---
Against Medical Advice Admission Date/Time: 01/14/20 00:31 Primary Care Provider: SYED ALMAGUER PA-C Date of Patient Emigration: 01/14/20 - Diagnosis: (1) KYLE (acute kidney injury) Is this a current diagnosis for this admission?: Yes (2) Bipolar depression Is this a current diagnosis for this admission?: Yes (4) Fall Is this a current diagnosis for this admission?: Yes (5) Tobacco abuse Is this a current diagnosis for this admission?: Yes - Summary: Summary: Please see Admission and Progress Notes as well. GIN HADDAD is a 49 F, who LEFT AGAINST MEDICAL ADVICE. Second dictation for AMA note on this patient. First done yesterday at the time of AMA The Patient was admitted on 01/14/20 00:31. Patient was admitted for altered mental status secondary to probable medication abuse. Patient reportedly took a months worth of her methocarbamol, Seroquel, Vistaril, Klonopin and just a couple of days.. Patient also reportedly came to the emergency room here on the after having fallen in gone to another emergency room the night before and given Rancocas. When she reported to our emergency room on the she told the provider she had run out of her medication. On the day that she left AMA she was requesting more pain medication. I had offered her Ultram and gabapentin teen. I told her that I would request a psychiatry consult to see what their opinion was concerning benzodiazepines and narcotics. Patient did not want to wait and therefore she signed out AMA. Instructed the nurse not to divulge any of this information concerning her medical care to her daughter who is going to pick her up at the hospital. Patient told us that it was her daughter who is taking her medication. Patient is medically stable to sign out AMA
== END 2020-01-14 15:17 | disposition left against medical advice (07) | DRG 917 ==
LOC: ER 19:29 → EH 01-14 00:31 → 3W 01-14 03:16
PROVIDERS: ADMIT Emergency Medicine; ATTEND Physician Assistant
DX: T42.8X1A Poisoning by antiparkinsonism drugs and other central muscle-tone depressants, accidental (unintentional), initial encounter (principal); G92 Toxic encephalopathy; N17.9 Acute kidney failure, unspecified; T43.591A Poisoning by other antipsychotics and neuroleptics, accidental (unintentional), initial encounter; T42.4X1A Poisoning by benzodiazepines, accidental (unintentional), initial encounter; J44.9 Chronic obstructive pulmonary disease, unspecified; D64.9 Anemia, unspecified; F31.9 Bipolar disorder, unspecified; M25.561 Pain in right knee; G43.909 Migraine, unspecified, not intractable, without status migrainosus; F17.210 Nicotine dependence, cigarettes, uncomplicated; Y92.018 Other place in single-family (private) house as the place of occurrence of the external cause; Z79.82 Long term (current) use of aspirin; Z79.51 Long term (current) use of inhaled steroids; Z79.899 Other long term (current) drug therapy
CPT/HCPCS: 36415; 51702; 70450; 80053; 80307; 81001; 82550; 82553; 82803; 83605; 83735; 84484; 85025; 93005; 93010; 94640; 96361; 96365; 96372; 99283; 99285; J1885; J3475; J3490; J7030; J7120; J7614; S0119